=== PATIENT | female | born 1940 | race Caucasian/White ===

== ENCOUNTER 2025-08-03 22:31 | Inpatient (IN) | payer OTHER, SELFPAY ==
[2025-08-03] VITALS (11 sets, daily range): BP systolic 103–129; BP diastolic 59–96
[2025-08-03 12:16] LABS: Hematocrit 38.8 % (37.0-47.0); Hemoglobin 12.9 g/dL (12.0-16.0); Mean Corp Hgb Conc. 33.2 g/dL (33.0-37.0); Mean Corpuscular Volume 82.7 fL (81.0-99.0); Nucleated Red Blood Cells % 0 %; Platelet Count 242 10^3/uL (130-400); Red Cell Dist. Width 13.6 % (11.5-14.5)
[2025-08-03 12:47] LABS: ALT (SGPT) 12 U/L (0-35); AST (SGOT) 22 U/L (14-36); Albumin 3.5 g/dl (3.5-5.0); Alkaline Phosphatase 63 U/L (38-126); Blood Urea Nitrogen 31 mg/dl (7-17); Calcium 9.2 mg/dl (8.4-10.2); Carbon Dioxide 19 mmol/L (22-30); Chloride 102 mmol/L (98-107); Glucose 143 mg/dl (70-99); Lipase 52 U/L (23-300); Potassium 5.2 mmol/L (3.5-5.1); Sodium 129 mmol/L (135-145); Total Protein 5.5 g/dl (6.3-8.2); eGFR 44.36
--- NOTE | 2025-08-03 13:29 | ED.GENMED ---
History of Present Illness
General
Chief Complaint: Abdominal Symptoms
Source: patient
Exam Limitations: none
Time Seen by Provider: 08/03/25 13:15
History of Present Illness
History of Present Illness:
They feel 85-year-old female presents from independent living [facility] with onset of diarrhea last night. 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 I spoke with her son who is a physician and power of securities attorney. He notes that
she had at least 20-30 episodes of diarrhea over the night. With her dementia she occasionally gets hallucinations and tends to act on them. Sometimes she can wander. Patient is a poor historian herself but she does note some abdominal pain
patient does have a history of C. difficile colitis. No reported fever.
Phy Exam
Physical Exam
Physical Exam:
General: Well-developed female in no acute respiratory distress
HEENT: Normocephalic atraumatic
Heart: Regular rate and rhythm
Lungs: Clear no wheeze
Abdomen is tender to the touch diffusely no guarding
Extremities: No cyanosis or edema
Course
Orders/Labs/Results
Orders:
Orders
08/03/25 11:54
IV Insert/Care/Rem.- Treatment PRN
08/03/25 12:08
Complete Blood Count/With Diff Urgent
Comprehensive Metabolic Panel Urgent
Lipase Urgent
08/03/25 13:27
0.9% Sodium Chloride 1000 ml [Nss] 1,000 ml IV BOLUS
08/03/25 13:29
CT Abd/pelvis W Iv Cont Urgent
Comment:
Reason For Exam: abdominal pain, diarrhea
08/03/25 16:21
US Abdomen Complete/Upper Urgent
Comment:
Reason For Exam: abdominal pain
08/03/25 16:22
CDIFF [C difficile Antigen & Toxins] Urgent
TK Source: Feces/Stool
Specimen Description:
Date Specimen was Collected: 08/03/25
Time Specimen was Collected: 16:20
Stool Culture Urgent
TK Source: Feces/Stool
Specimen Description:
Date Specimen was Collected: 08/03/25
Time Specimen was Collected: 16:20
CR Chest - 2 Views Urgent
Comment:
Reason For Exam: weakness
08/03/25 16:28
Vancomycin HCl [Firvanq] 250 mg PO NOW STA
Abnormal Lab Results
08/03/25
12:08
WBC 22.9 H 10^3/uL
(4.8-10.8)
Abs Immat Gran (auto) 0.2 H 10^3/uL
(0-0.05)
Absolute Neuts (auto) 18.4 H 10^3/uL
(1.4-6.5)
Absolute Monos (auto) 2.6 H 10^3/uL
(0.1-0.6)
Immature Gran % 0.8 H %
(0-0.5)
Neutrophils % 80.3 H %
(42.2-75.2)
Lymphocytes % 7.5 L %
(20.5-51.1)
Monocytes % 11.1 H %
(1.7-9.3)
Sodium 129 L mmol/L
(135-145)
Potassium 5.2 H mmol/L
(3.5-5.1)
Carbon Dioxide 19 L mmol/L
(22-30)
BUN 31 H mg/dl
(7-17)
Creatinine 1.2 H mg/dL
(0.6-1.0)
Glucose 143 H mg/dl
(70-99)
Total Protein 5.5 L g/dl
(6.3-8.2)
08/03/25 12:08
08/03/25 12:08
Vital Signs
Initial and Last Documented VS:
Initial Vital Signs
Temp Pulse Resp BP Pulse Ox
97.5 F 84 22 103/59 94
08/03/25 11:57 08/03/25 11:57 08/03/25 11:57 08/03/25 11:57 08/03/25 11:57
Last Documented Vital Signs
Temp Pulse Resp BP Pulse Ox
97.5 F 83 26 115/72 94
08/03/25 11:57 08/03/25 14:45 08/03/25 14:45 08/03/25 14:00 08/03/25 13:32
MDM/Problems Addressed
Differential Diagnosis Includes:
Patient with diarrhea since last night. Consider electrolyte abnormality versus dehydration versus colitis. Stool studies ordered. Given the tenderness on exam CT of the abdomen pending
*Pulse Oximetry
SaO2: 94
Oxygen Mode of Delivery: Room air
Patient hypoxic: no
*Critical Care Note
Total Time (30-74mins, 75-104mins- exclusive of procedures): Not Applicable
Update Note
Update Note:
CT demonstrates colitis with distended gallbladder with sludge in the gallbladder. Patient was briefly hypoxic here. They are questioning possible aspiration. Chest x-ray pending. Did follow-up CT scan with ultrasound. Ultrasound confirms
distended gallbladder but no secondary signs of cholecystitis. With history of C. difficile, patient was empirically treated with vancomycin by mouth for colitis. Given elevated white count acute kidney injury and ongoing diarrhea, will admit to
hospital for colitis
ED Attending Note
-
Portions of this chart may have been created with voice recognition software.� Occasional wrong word or��sound alike� substitutions may have occurred due to the inherent limitations of voice recognition software.
Discharge Plan
Departure
Patient Disposition: Admit
Date of Disposition: 08/03/25
Time of Disposition: 19:28
Presentation/result/management discussed w/ accepting MD/DO: Hospitalist
Discharge Problem:
Colitis
Referrals:
Maryann Hernandez MD [Family Provider, Internal Medicine]
Interventions
Interventions:
*Risk Screen - Suicide Last Done: 08/03/25 11:57
*General Assessment Last Done: 08/03/25 11:57
*Neglect/Abuse Screening Last Done: 08/03/25 11:57
*ED- Fall Risk Assessment Last Done: 08/03/25 11:57
AJ-Dqtfbl-Dyfzrztqax Assessment Last Done: 08/03/25 11:57
Discharge Date and Time
Print Language: ARABIC
[2025-08-03] MEDS: NSS 1000 IV (14:02)
[2025-08-03] MEDS: FIRVANQ 250 MG PO (17:08)
--- NOTE | 2025-08-03 22:03 | HPS.HSE ---
Family Physician
-
Family Physician: Maryann Hernandez
Chief Complaint
-
Diarrhea
History of Present Illness
Patient is an 85y F with PMH significant for senile dementia and retinitis pigmentosa who presents to ED for evaluation of diarrhea. History obtained from ED staff and son via phone. Patient was doing fairly well until she began to have
profuse, watery diarrhea last PM. Son estimates about 20-30 episodes of loose stools overnight. Patient has prior h/o CDiff infection - but no recent abx use, etc.
Patient is legally blind due to retinitis pigmentosa / macular degeneration. She has had increasing issues with visual hallucinations / confusion recently and was started on risperidone about 5 days ago. No other new medications.
In the ED, patient appears to be resting comfortably.
Medical History
Past Medical History
Past Medical History: Reports Other
Additional Past Medical History:
Senile Dementia
Hypertension
GERD
Retinitis Pigmentosa
Macular Degeneration
CKD III
DDD
History of DVT
Past Surgical History: Reports Other
Additional Past Surgical History:
Appendectomy
Oophorectomy
Spinal Cord Stimulator
Bilateral TKA
Social History
Tobacco: Non-smoker
Alcohol: Occasional
Drug: None
Living: Halfway
Family History
Family History: Not pertinent
Allergies / Home Medications
Allergies reflects when Allergies were last updated in [facility].
Home Medications with original date entered in [facility]
Allergy/Medication List:
Allergies
Allergy/AdvReac Type Severity Reaction Status Date / Time
No Known Allergies Allergy Unverified 08/03/25 13:49
Home Medications
amlodipine 5 mg tablet (Norvasc) 5 mg PO DAILY 08/03/25
calcium carbonate (Tums) 400 mg PO QPM 08/03/25
calcium polycarbophil 625 mg tablet (FiberCon) 625 mg PO DAILY 08/03/25
cholecalciferol (vitamin D3) 50 mcg (2,000 unit) capsule (Vitamin D3) 50 mcg PO DAILY 08/03/25
denosumab 60 mg/mL subcutaneous syringe (Prolia) 60 mg SC [id number] 08/03/25
duloxetine 60 mg capsule,delayed release 60 mg PO BID 08/03/25
famotidine 40 mg tablet (Pepcid) 40 mg PO BID 08/03/25
loperamide 2 mg tablet 2 mg PO BID 08/03/25
metoprolol succinate 25 mg tablet,extended release 24 hr (Toprol XL) 12.5 mg PO QPM 08/03/25
risperidone 0.5 mg tablet 0.5 mg PO DAILY 08/03/25
simvastatin 20 mg tablet (Zocor) 20 mg PO QPM 08/03/25
tramadol 50 mg tablet 50 mg PO BIDPRN PRN moderate pain 08/03/25
valsartan 160 mg tablet 160 mg PO QPM 08/03/25
Review of Systems
-
Unable to obtain full review of systems at this time due to: Dementia
Physical Exam
Vital Signs
Vital Signs
Temp Pulse Resp BP Pulse Ox
97.5 F 92 23 114/69 94
08/03/25 11:57 08/03/25 19:13 08/03/25 19:13 08/03/25 22:00 08/03/25 21:25
Physical Exam
General: Other (85y F in no acute distress.)
HEENT: Other (Dry MM. Neck supple.)
Respiratory: Clear; No Wheezes, Rales or Rhonchi
Cardiac: S1/S2 and Regular Rhythm; No Murmur
GI: Soft, Non Distended, Normal Bowel Sounds and Other (Mild tenderness LLQ. No rebound / guarding.)
Musculoskeletal: No Clubbing, No Cyanosis and No Edema
Neuro: Awake
Laboratory Results
-
08/03/25 12:08
08/03/25 12:08
Laboratory Results
Total Bilirubin 0.8 mg/dl (0.2-1.3) 08/03/25 12:08
AST 22 U/L (14-36) 08/03/25 12:08
ALT 12 U/L (0-35) 08/03/25 12:08
Alkaline Phosphatase 63 U/L (38-126) 08/03/25 12:08
Lipase 52 U/L (23-300) 08/03/25 12:08
Impression/Plan
-
A/P: Patient is an 85y F with PMH significant for dementia and blindness who presents to ED for evaluation of diarrhea.
Colitis
Sepsis secondary to the above
- Admit for further evaluation and treatment.
- Patient presents with leukocytosis, tachypnea and symptoms/ imaging consistent with colitis.
- CDiff Ag positive but toxin negative. No evidence of active / current infection.
- Empiric abx for suspected infectious colitis.
- Continue PO vancomycin for prophylaxis given history of CDiff.
- Supportive care with IVFs.
- Follow-up stool cultures.
- Follow for clinical improvement.
ANNY on CKD III
Hyperkalemia
Hyponatremia
Non-Gapped Metabolic Acidosis
- Likely secondary to GI losses.
- IVF support as noted above.
- Monitor electrolytes and adjust IVFs as needed.
- Hold valsartan acutely.
- Follow for improvement.
Mild Hypoxemia
- Patient reportedly hypoxemic on arrival. Noted tachypnea.
- Concern per family for aspiration.
- Chest imaging clear today. No cough evident.
- Aspiration precautions.
- Monitor for any recurrent hypoxemia, etc.
Senile Dementia
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
- Increased visual hallucinations recently.
- Continue Risperdal. Follow for agitation / delirium during acute stay.
Benign Hypertension
- Holding valsartan and amlodipine acutely.
- Follow BP and resume when appropriate.
History of DVT
DVT Prophylaxis
- Subcut Heparin
Code Status: DNR
[2025-08-04] VITALS (7 sets, daily range): BP systolic 97–119; BP diastolic 57–75; BMI 24.4; BMI 25.2
[2025-08-04] MEDS: NSS 1000 IV ×3 (01:24→22:02)
[2025-08-04] MEDS: FIRVANQ 125 MG PO ×5 (01:24→23:58)
[2025-08-04] MEDS: ZOSYN 50 IV ×5 (01:25→23:58)
--- NOTE | 2025-08-04 06:14 | PTCARENOTE ---
08/04/2025: 0130: Pt arrived on unit approx 0100. Pt was AAOx1-2 upon arrival. Pt had difficulty answering admission questions due to orientation.
[2025-08-04] MEDS: CYMBALTA DELAYED RELEASE 60 MG PO ×2 (08:31→22:00)
[2025-08-04] MEDS: HEPARIN 5000 UNITS SC ×2 (08:31→22:00)
[2025-08-04] MEDS: RISPERDAL 0.5 MG PO (08:31)
[2025-08-04 08:55] LABS: Hematocrit 35.9 % (37.0-47.0); Hemoglobin 12.1 g/dL (12.0-16.0); Mean Corp Hgb Conc. 33.7 g/dL (33.0-37.0); Mean Corpuscular Volume 83.5 fL (81.0-99.0); Platelet Count 220 10^3/uL (130-400); Red Cell Dist. Width 13.8 % (11.5-14.5)
--- NOTE | 2025-08-04 09:22 | CON.GI ---
Addendum entered and electronically signed by You Rodas MD 08/04/25 18:28:
I saw and examined the patient.
The medical record librarian's note was reviewed and I agree with the note.
Poor historian. History of dementia/blindness. As per RN continues to have diarrhea
Diarrhea/ C.diff Ag + but toxin negative / prior hx of c.diff
CT abd/ pel with IV cont
IMPRESSION:
Limited evaluation of intestinal tract without oral contrast with at least some suggested mild wall thickening of the descending colon and sigmoid with some liquid stool, findings at least suspicious for colitis. No intestinal obstruction or free
air.
--WBC this a.m. trending down. No fever . Stool culture pending
-- Continue Vancomycin initiated by medical team
--Correction of electrolytes as per medical team
-- Advance diet as tolerated- lactose free low fat diet
-- ok to add probiotics on discharge
- will hold off on any GI invasive testing in the future considering her age/comorbidities.
Original Note:
Consultation
-
Date/Time Consultation Requested: 08/04/2025
Date/Time Consultation Performed: 08/04/2025
Requesting Provider: Travis Hammond
Performing Provider: You Rodas
Reason for Consultation: Colitis
Medical History
Chief Complaint / HPI
Chief Complaint: Diarrhea
History of Present Illness:
Catarina is an 85-year-old female with a past medical history of legal blindness, Lewy body dementia, hypertension, hyperlipidemia, GERD, osteoporosis presents from independent living at [facility] with less than 24 hours of diarrhea.
Son who is POA notes that she had at least 20-30 episodes of diarrhea over the night. Patient is a poor historian, but she did note some abdominal pain on admission. She has a history of C. difficile colitis for which she was treated in the past.
There were no reported fevers.
Lab work in the ED showed WBC 22 with left shift, stable hemoglobin at 12.9, hyponatremia 129, hyperkalemia 5.2, creatinine 1.2 (baseline unknown), elevated BUN 31. She was afebrile and hemodynamically stable. CT abdomen pelvis with IV contrast
demonstrated limited evaluation of intestinal tract, mild wall thickening of descending colon and sigmoid, suspicious for colitis. Also showed gallbladder stones and sludge with no findings of biliary tract dilatation. Abdominal ultrasound showed
limited evaluation due to body habitus/cooperation, confirmed gallbladder stones and sludge but no findings to suggest acute cholecystitis, negative sonographic Gonzalez's, obscured pancreas/abdominal aorta/IVC due to overlying bowel gas. Chest x-ray
showing no acute cardiopulmonary process.
C. difficile antigen positive toxin negative, stool studies still pending. Patient started on p.o. vancomycin and IV Zosyn as well as IV fluids.
GI was consulted for CT imaging findings of colitis and diarrhea.
When seen this morning she is awake/arousable, and capable of answering questions. Though she is not oriented to time, she is oriented to person and place. She had 3-4 small volume, nonbloody, light brown, liquid bowel movements overnight.
Past Medical History
Past Medical History: Other (See HPI)
Past Surgical History: Other
Social History
Tobacco: Non-Smoker
Alcohol: None
Drug: None
Living: [facility]
Family History
Family History: Reviewed & Not Pertinent
Allergies / Home Medications
Allergy/AdvReac Type Severity Reaction Status Date / Time
No Known Allergies Allergy Unverified 08/03/25 13:49
�Medication �Instructions �Recorded
amlodipine 5 mg tablet (Norvasc) 5 mg PO DAILY 08/03/25
calcium carbonate (Tums) 400 mg PO QPM 08/03/25
calcium polycarbophil 625 mg 625 mg PO DAILY 08/03/25
tablet (FiberCon)
cholecalciferol (vitamin D3) 50 50 mcg PO DAILY 08/03/25
mcg (2,000 unit) capsule (Vitamin
D3)
denosumab 60 mg/mL subcutaneous 60 mg SC [id number] 08/03/25
syringe (Prolia)
duloxetine 60 mg capsule,delayed 60 mg PO BID 08/03/25
release
famotidine 40 mg tablet (Pepcid) 40 mg PO BID 08/03/25
loperamide 2 mg tablet 2 mg PO BID 08/03/25
metoprolol succinate 25 mg 12.5 mg PO QPM 08/03/25
tablet,extended release 24 hr
(Toprol XL)
risperidone 0.5 mg tablet 0.5 mg PO DAILY 08/03/25
simvastatin 20 mg tablet (Zocor) 20 mg PO QPM 08/03/25
tramadol 50 mg tablet 50 mg PO BIDPRN PRN moderate pain 08/03/25
valsartan 160 mg tablet 160 mg PO QPM 08/03/25
Review of Systems
-
Unable to obtain full review of systems at this time due to: Dementia and Acuity
History Source: Patient and Family
All other systems: A 12 pt ROS was Negative except as stated above in HPI
Vital Signs
Temp Pulse Resp BP Pulse Ox
97.7 F 103 18 113/69 94
08/04/25 07:40 08/04/25 07:40 08/04/25 07:40 08/04/25 07:40 08/04/25 07:40
Physical Exam
Exam
General: Well Developed, Well Nourished, No Apparent Distress and Comfortable
HEENT: Normocephalic, Anicteric, Moist Mucous Membranes and Atraumatic
Respiratory: Clear and Non Labored Respirations; Negative Wheezes, Rales or Rhonchi
Cardiac: S1/S2 and Regular Rhythm; Negative Murmur or Rub
Breast: Deferred by me
GI: Soft, Non Distended, Normal Bowel Sounds and Tender (Left lower quadrant, epigastric, right lower quadrant)
Rectal: Deferred by Provider
Musculoskeletal: No Clubbing, No Cyanosis and No Edema
Skin: Warm and Dry
Neuro: Awake, Alert and Oriented (To person and place only)
Psych: Calm and Confused
Results
WBC 12.9 10^3/uL (4.8-10.8) H 08/04/25 08:04
Hgb 12.1 g/dL (12.0-16.0) 08/04/25 08:04
Hct 35.9 % (37.0-47.0) L 08/04/25 08:04
MCV 83.5 fL (81.0-99.0) 08/04/25 08:04
Plt Count 220 10^3/uL (130-400) 08/04/25 08:04
Absolute Neuts (auto) 18.4 10^3/uL (1.4-6.5) H 08/03/25 12:08
Sodium 129 mmol/L (135-145) L 08/03/25 12:08
Potassium 5.2 mmol/L (3.5-5.1) H 08/03/25 12:08
Chloride 102 mmol/L (98-107) 08/03/25 12:08
Carbon Dioxide 19 mmol/L (22-30) L 08/03/25 12:08
BUN 31 mg/dl (7-17) H 08/03/25 12:08
Creatinine 1.2 mg/dL (0.6-1.0) H 08/03/25 12:08
Calcium 9.2 mg/dl (8.4-10.2) 08/03/25 12:08
Total Bilirubin 0.8 mg/dl (0.2-1.3) 08/03/25 12:08
AST 22 U/L (14-36) 08/03/25 12:08
ALT 12 U/L (0-35) 08/03/25 12:08
Alkaline Phosphatase 63 U/L (38-126) 08/03/25 12:08
Lipase 52 U/L (23-300) 08/03/25 12:08
Diagnostic Image Results:
Prior GI Procedures:
EGD:
Colonoscopy:
Assessment / Plan
-
Catarina is an 85-year-old female with a past medical history of legal blindness, Lewy body dementia, hypertension, hyperlipidemia, GERD, osteoporosis presents from independent living at [facility] with less than 24 hours of 20-30 nonbloody liquid
bowel movements, and a history of C. difficile.
#Diarrhea
#C. difficile antigen positive, toxin negative
Etiology at this time leading more towards infectious. Patient from care home with a history of C. difficile and antigen positive on stool studies with active symptoms of diarrhea, but toxin negative.
- At this time she is receiving treatment for presumed C. difficile infection
- Continue to follow remaining stool studies
- Diarrhea improving at this time
- Continue to trend CMP, monitoring and repletion of electrolytes per primary team
- Continue IV fluid support for ANNY on CKD III
- Can consider adding probiotic posttreatment
- If all stool studies remain negative and diarrhea fails to improve, may then consider alternative causes and investigations. However, given age and significant comorbidities it is uncertain whether or not EGD/Colonoscopy would be appropriate or of
benefit.
- GI will follow
-
-
Thank you for consultation and allowing me to participate in the patient's care. Please call the assembly person GI physician during the after hours with any questions or concerns.
--- NOTE | 2025-08-04 10:24 | PTOTSP ---
Speech Therapy Assessment
Oral/pharyngeal swallow deemed within functional limits without overt signs of aspiration. However, history of dementia, and current illness/compromised immune system increase risk for dysphagia.
Recommend
1. Continue with current diet of regular solid and thin liquids as part of BRAT diet currently ordered.
2. Assist with set up and feeding given legally blind status and dementia.
3. Meds one at a time as tolerated with liquid.
4. ST will follow up briefly to ensure diet tolerance.
[2025-08-04 10:52] LABS: Blood Urea Nitrogen 30 mg/dl (7-17); Calcium 8.3 mg/dl (8.4-10.2); Carbon Dioxide 20 mmol/L (22-30); Chloride 106 mmol/L (98-107); Estimated Creatinine Clearance 27 ml/min; Glucose 103 mg/dl (70-99); Potassium 4.2 mmol/L (3.5-5.1); Sodium 132 mmol/L (135-145); eGFR 44.36
--- NOTE | 2025-08-04 13:58 | W.PN.HOSP.TC ---
Today's Communication/Plan
-
NPO
ADAT
Abx
Assessment / Plan
Assessment / Plan
Physical Exam
General: Other (85y F in no acute distress.)
HEENT: Other (Dry MM. Neck supple.)
Respiratory: Clear; No Wheezes, Rales or Rhonchi
Cardiac: S1/S2 and Regular Rhythm; No Murmur
GI: Soft, Non Distended, Normal Bowel Sounds and Other (Mild tenderness LLQ. No rebound / guarding.)
Musculoskeletal: No Clubbing, No Cyanosis and No Edema
Neuro: Awake
A/P: Patient is an 85y F with PMH significant for dementia and blindness who presents to ED for evaluation of diarrhea.
Colitis
Sepsis secondary to the above
- Admit for further evaluation and treatment.
- Patient presents with leukocytosis, tachypnea and symptoms/ imaging consistent with colitis.
- CDiff Ag positive but toxin negative. No evidence of active / current infection.
- Empiric abx for suspected infectious colitis.
- Continue PO vancomycin for prophylaxis given history of CDiff.
- Supportive care with IVFs.
- Follow-up stool cultures.
- Follow for clinical improvement.
ANNY on CKD III v CKDIII
Hyperkalemia
Hyponatremia
Non-Gapped Metabolic Acidosis
- Likely secondary to GI losses.
- IVF support as noted above.
- Monitor electrolytes and adjust IVFs as needed.
- Hold valsartan acutely.
- Follow for improvement.
Mild Hypoxemia
- Patient reportedly hypoxemic on arrival. Noted tachypnea.
- Concern per family for aspiration.
- Chest imaging clear today. No cough evident.
- Aspiration precautions.
- Monitor for any recurrent hypoxemia, etc.
Senile Dementia
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
- Increased visual hallucinations recently.
- Continue Risperdal. Follow for agitation / delirium during acute stay.
Benign Hypertension
- Holding valsartan and amlodipine acutely.
- Follow BP and resume when appropriate.
History of DVT
DVT Prophylaxis
- Subcut Heparin
Code Status: DNR
Anticipated Discharge: 24 - 48 hours
Subjective/Interval History
-
Date of Service: August 04, 2025
no acute events - diarrhea still present
Objective Data
-
Labs:
Laboratory Results
08/04/25
08:04
WBC 12.9 H
Hgb 12.1
Hct 35.9 L
Plt Count 220
Sodium 132 L
Potassium 4.2
Chloride 106
Carbon Dioxide 20 L
BUN 30 H
Creatinine 1.2 H
Glucose 103 H
Calcium 8.3 L
Vital Signs:
Vital Signs
Temp Pulse Resp BP Pulse Ox
97.5 F 95 14 113/69 98
08/04/25 11:20 08/04/25 11:20 08/04/25 11:20 08/04/25 07:40 08/04/25 11:20
Review of Systems
-
History Source: Patient
All other systems: Not reviewed unless documented
Data Reviewed
-
CT Scan: Report Reviewed by me
Labs: Labs Reviewed by me
--- NOTE | 2025-08-04 16:36 | CM ---
hedis manager reviewed patient's chart and met with patient and patient with dementia, case briefer reached out to patient's son Paras for prior set up, [facility], has 24 hour aide to assist, with adl's
and did not use any device with ambulation,. Patient's family were looking and memory care, but are interested in skilled placement if patient qualifies.
PCP: You Rogers
Pharmacy: [facility].
Plan; Referral sent to [facility] for possible skilled rehab.
[2025-08-04] MEDS: LIPITOR 10 MG PO (17:06)
[2025-08-04] MEDS: TOPROL XL 12.5 MG PO (17:06)
[2025-08-05 02:47] VITALS: BP 116/62
[2025-08-05 03:10] VITALS: BMI 25.1
[2025-08-05] MEDS: ZOSYN 50 IV ×3 (05:43→16:59)
[2025-08-05] MEDS: FIRVANQ 125 MG PO ×3 (05:43→16:59)
[2025-08-05] MEDS: NSS 1000 IV ×2 (05:44→17:00)
[2025-08-05 06:59] LABS: ALT (SGPT) 11 U/L (0-35); AST (SGOT) 19 U/L (14-36); Albumin 2.9 g/dl (3.5-5.0); Alkaline Phosphatase 72 U/L (38-126); Blood Urea Nitrogen 24 mg/dl (7-17); Calcium 8.1 mg/dl (8.4-10.2); Carbon Dioxide 18 mmol/L (22-30); Chloride 111 mmol/L (98-107); Estimated Creatinine Clearance 33 ml/min; Glucose 88 mg/dl (70-99); Potassium 3.5 mmol/L (3.5-5.1); Sodium 135 mmol/L (135-145); Total Protein 5.0 g/dl (6.3-8.2); eGFR 55.21
[2025-08-05 07:05] VITALS: BP 108/62
[2025-08-05 07:12] LABS: Hematocrit 32.4 % (37.0-47.0); Hemoglobin 11.0 g/dL (12.0-16.0); Mean Corp Hgb Conc. 34.0 g/dL (33.0-37.0); Mean Corpuscular Volume 82.7 fL (81.0-99.0); Platelet Count 220 10^3/uL (130-400); Red Cell Dist. Width 13.8 % (11.5-14.5)
[2025-08-05] MEDS: CYMBALTA DELAYED RELEASE 60 MG PO ×2 (09:03→20:41)
[2025-08-05] MEDS: HEPARIN 5000 UNITS SC ×2 (09:03→20:41)
[2025-08-05] MEDS: RISPERDAL 0.5 MG PO (09:03)
--- NOTE | 2025-08-05 09:31 | W.PN.GI.CBS2 ---
Addendum entered and electronically signed by You Rodas MD 08/05/25 20:57:
I saw and examined the patient.
The veterinary medical officer's note was reviewed and I agree with the note.
as per RN continues to have loose stool - 5 BMs
plan
ok to advance to low fat lactose free diet as tolerated
continue vanco for c.diff ag + but toxin negative
trial of cholestyramine
continue supportive care .
will hold off on any GI invasive testing in the future considering her age/comorbidities.
no further recommendations. will s/o
Original Note:
Today's Communication / Plan
-
see plan
Assessment / Plan
-
Catarina is an 85-year-old female with a past medical history of legal blindness, Lewy body dementia, hypertension, hyperlipidemia, GERD, osteoporosis presents from independent living at [facility] with less than 24 hours of 20-30 nonbloody liquid
bowel movements, and a history of C. difficile.
#Diarrhea
#C. difficile antigen positive, toxin negative
Etiology at this time leading more towards infectious. Patient from retirement with a history of C. difficile and antigen positive on stool studies with active symptoms of diarrhea, but toxin negative.
- WBC count still elevated at 12.6, however remains afebrile -- continue with IV Zosyn and p.o. Vanco
- Still having liquid diarrhea
- Stool studies still pending, adjust antibiotics following results
- Monitoring and repletion of electrolytes per primary team
- ADAT
- Continue IV fluid support
- Can consider adding probiotic posttreatment on discharge
- If all stool studies remain negative and diarrhea fails to improve, may then consider alternative causes and investigations. However, given age and significant comorbidities would not recommend EGD/Colonoscopy.
Subjective
Subjective
Date of Service: August 05, 2025
Had 5 liquid brown, nonbloody bms overnight and two this morning. She remains afebrile. She has some complaints of abdominal pain this morning as well as diarrhea. No subjective fevers or chills.
Objective
Data Reviewed
Laboratory Data:
Laboratory Results
08/05/25 06:03
08/05/25 06:03
Laboratory Results
Total Bilirubin 0.7 mg/dl (0.2-1.3) 08/05/25 06:03
AST 19 U/L (14-36) 08/05/25 06:03
ALT 11 U/L (0-35) 08/05/25 06:03
Alkaline Phosphatase 72 U/L (38-126) 08/05/25 06:03
Lipase 52 U/L (23-300) 08/03/25 12:08
Vital Signs and I&O:
Vital Signs
Temp Pulse Resp BP Pulse Ox
97.9 F 88 16 108/62 92
08/05/25 07:05 08/05/25 07:05 08/05/25 07:05 08/05/25 07:05 08/05/25 07:05
Physical Exam
Physical Exam
HEENT: Anicteric and Moist mucous membranes
Cardiology: Normal Sinus Rhythm, S1 and S2
GI: Soft, Non Distended, Tender (LLQ tenderness) and Normal Bowel Sounds
Extremities: No Edema and Warm
[2025-08-05 11:26] VITALS: BP 118/75
--- NOTE | 2025-08-05 13:51 | W.PN.HOSP.TC ---
Today's Communication/Plan
-
ADAT
Abx
IVF
Assessment / Plan
Assessment / Plan
Physical Exam
General: Other (85y F in no acute distress.)
HEENT: Other (Dry MM. Neck supple.)
Respiratory: Clear; No Wheezes, Rales or Rhonchi
Cardiac: S1/S2 and Regular Rhythm; No Murmur
GI: Soft, Non Distended, Normal Bowel Sounds and Other (Mild tenderness LLQ. No rebound / guarding.)
Musculoskeletal: No Clubbing, No Cyanosis and No Edema
Neuro: Awake
A/P: Patient is an 85y F with PMH significant for dementia and blindness who presents to ED for evaluation of diarrhea.
Colitis
Sepsis secondary to the above
- Admit for further evaluation and treatment.
- Patient presents with leukocytosis, tachypnea and symptoms/ imaging consistent with colitis.
- CDiff Ag positive but toxin negative. No evidence of active / current infection.
- Empiric abx for suspected infectious colitis.
- Continue PO vancomycin for prophylaxis given history of CDiff.
- Supportive care with IVFs.
- Follow-up stool cultures.
- Follow for clinical improvement.
- ADAT - CLD
ANNY on CKD III v CKDIII
Hyperkalemia
Hyponatremia
Non-Gapped Metabolic Acidosis
- Likely secondary to GI losses.
- IVF support as noted above.
- Monitor electrolytes and adjust IVFs as needed.
- Hold valsartan acutely.
- Follow for improvement.
Mild Hypoxemia
- Patient reportedly hypoxemic on arrival. Noted tachypnea.
- Concern per family for aspiration.
- Chest imaging clear today. No cough evident.
- Aspiration precautions.
- Monitor for any recurrent hypoxemia, etc.
- wean o2 as tolerated
Senile Dementia
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
- Increased visual hallucinations recently.
- Continue Risperdal. Follow for agitation / delirium during acute stay.
Benign Hypertension
- Holding valsartan and amlodipine acutely.
- Follow BP and resume when appropriate.
History of DVT
DVT Prophylaxis
- Subcut Heparin
Code Status: DNR
Anticipated Discharge: Within 24 hours
Subjective/Interval History
-
Date of Service: August 05, 2025
5 liquid BMs overnight, 2 this morning. Mild tenderness upon palpation of abdomen
Objective Data
-
Labs:
Laboratory Results
08/05/25
06:03
WBC 12.6 H
Hgb 11.0 L
Hct 32.4 L
Plt Count 220
Sodium 135
Potassium 3.5
Chloride 111 H
Carbon Dioxide 18 L
BUN 24 H
Creatinine 1.0
Glucose 88
Calcium 8.1 L
Total Bilirubin 0.7
AST 19
ALT 11
Alkaline Phosphatase 72
Vital Signs:
Vital Signs
Temp Pulse Resp BP Pulse Ox
97.9 F 89 16 118/75 93
08/05/25 11:26 08/05/25 11:26 08/05/25 11:26 08/05/25 11:26 08/05/25 11:26
Review of Systems
-
History Source: Patient
All other systems: Not reviewed unless documented
Data Reviewed
-
CT Scan: Report Reviewed by me
Labs: Labs Reviewed by me
[2025-08-05 15:05] VITALS: BP 119/73
--- NOTE | 2025-08-05 15:08 | CM ---
Chart reviewed and physical therapy are recommending skilled placement, referral sent to the [facility] for possible skilled placement, patient lives with her spouse at [facility] apartments.
Plan; Skilled placement at the [facility] will need Auth from insurance.
[2025-08-05] MEDS: LIPITOR 10 MG PO (16:59)
[2025-08-05] MEDS: TOPROL XL 12.5 MG PO (16:59)
[2025-08-05 19:55] VITALS: BP 121/79
[2025-08-05 23:08] VITALS: BP 111/59
[2025-08-06] MEDS: ZOSYN 50 IV ×4 (00:31→18:41)
[2025-08-06] MEDS: FIRVANQ 125 MG PO ×2 (00:31→05:32)
[2025-08-06 03:49] VITALS: BP 108/61
[2025-08-06] MEDS: NSS IV (04:51)
[2025-08-06] MEDS: NSS 1000 IV (05:35)
[2025-08-06 06:00] VITALS: BMI 25.1
[2025-08-06 07:05] VITALS: BP 135/75
[2025-08-06 07:58] LABS: Hematocrit 36.6 % (37.0-47.0); Hemoglobin 12.8 g/dL (12.0-16.0); Mean Corp Hgb Conc. 35.0 g/dL (33.0-37.0); Mean Corpuscular Volume 80.8 fL (81.0-99.0); Platelet Count 294 10^3/uL (130-400); Red Cell Dist. Width 13.5 % (11.5-14.5)
[2025-08-06] MEDS: HEPARIN 5000 UNITS SC ×2 (08:10→20:05)
[2025-08-06] MEDS: RISPERDAL PO ×2 (08:10→10:22)
[2025-08-06] MEDS: CYMBALTA DELAYED RELEASE PO ×3 (08:10→19:21)
[2025-08-06 08:16] LABS: ALT (SGPT) 17 U/L (0-35); AST (SGOT) 24 U/L (14-36); Albumin 3.2 g/dl (3.5-5.0); Alkaline Phosphatase 156 U/L (38-126); Blood Urea Nitrogen 11 mg/dl (7-17); Calcium 8.0 mg/dl (8.4-10.2); Carbon Dioxide 16 mmol/L (22-30); Chloride 110 mmol/L (98-107); Estimated Creatinine Clearance 41 ml/min; Glucose 112 mg/dl (70-99); Potassium 3.3 mmol/L (3.5-5.1); Sodium 136 mmol/L (135-145); Total Protein 5.5 g/dl (6.3-8.2); eGFR > 60.00
[2025-08-06] MEDS: KCL 270 MEQ IV (09:53)
[2025-08-06] MEDS: QUESTRAN PO (10:22)
--- NOTE | 2025-08-06 10:24 | PTCARENOTE ---
RN noticed audible wheeze this am shortly after pt was coughing with oral intake. notified. pt NPO, to receive chest xray and be evaluated by speech. pt currently 95 on 2L
--- NOTE | 2025-08-06 12:26 | W.PN.HOSP.TC ---
Today's Communication/Plan
-
ADAT if cleared by speech
cxr
stop fluids
nebs
Assessment / Plan
Assessment / Plan
Physical Exam
General: Other (85y F in no acute distress.)
HEENT: Other (Dry MM. Neck supple.)
Respiratory: Clear; No Wheezes, Rales or Rhonchi
Cardiac: S1/S2 and Regular Rhythm; No Murmur
GI: Soft, Non Distended, Normal Bowel Sounds and Other (Mild tenderness LLQ. No rebound / guarding.)
Musculoskeletal: No Clubbing, No Cyanosis and No Edema
Neuro: Awake
A/P: Patient is an 85y F with PMH significant for dementia and blindness who presents to ED for evaluation of diarrhea.
Colitis
Sepsis secondary to the above
- Admit for further evaluation and treatment.
- Patient presents with leukocytosis, tachypnea and symptoms/ imaging consistent with colitis.
- CDiff Ag positive but toxin negative. No evidence of active / current infection.
- Empiric abx for suspected infectious colitis.
- Continue PO vancomycin for prophylaxis given history of CDiff.
- Supportive care with IVFs.
- Follow-up stool cultures.
- Follow for clinical improvement.
- ADAT - CLD, can advance to full liquid diet if tolerating p.o.
ANNY on CKD III v CKDIII
Hyperkalemia/hypokalemia
Hyponatremia
Non-Gapped Metabolic Acidosis
- Likely secondary to GI losses.
- IVF support as noted above.
- Monitor electrolytes and adjust IVFs as needed.
- Hold valsartan acutely.
- Follow for improvement.
Mild Hypoxemia
- Patient reportedly hypoxemic on arrival. Noted tachypnea.
� Suspected aspiration
� Reengage speech eval again
� DuoNebs
� X-ray
� Weaned off o2
- stop fluids
Senile Dementia
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
- Increased visual hallucinations recently.
- Continue Risperdal. Follow for agitation / delirium during acute stay.
Benign Hypertension
- Holding valsartan and amlodipine acutely.
- Follow BP and resume when appropriate.
History of DVT
DVT Prophylaxis
- Subcut Heparin
Code Status: DNR
Total time spent on today's encounter was 50 minutes which included time spent in counseling the patient/family regarding diagnosis and treatment plan as listed above, goals of care, and symptom management. Case was discussed with nursing staff,
specialists, and care coordinators/case management. All labs and imaging personally reviewed by me. Remainder the time spent in detailed review of previous records, lab data, imaging, and other medical provider documentation.
Anticipated Discharge: > 48 hours
Subjective/Interval History
-
Date of Service: August 06, 2025
�Improved. Appears to possibly have aspirated this morning, with some wheezing noted. Fluids stopped
Objective Data
-
Labs:
Laboratory Results
08/06/25
07:18
WBC 13.6 H
Hgb 12.8
Hct 36.6 L
Plt Count 294 D
Sodium 136
Potassium 3.3 L
Chloride 110 H
Carbon Dioxide 16 L
BUN 11
Creatinine 0.8
Glucose 112 H
Calcium 8.0 L
Total Bilirubin 1.0
AST 24
ALT 17
Alkaline Phosphatase 156 H
Vital Signs:
Vital Signs
Temp Pulse Resp BP Pulse Ox
97.4 F 95 16 135/75 94
08/06/25 07:05 08/06/25 07:05 08/06/25 07:05 08/06/25 07:05 08/06/25 08:15
I&O
08/05/25 08/06/25 08/07/25
06:59 06:59 06:59
Intake Total 340 / 340
Balance 340 / 340
Review of Systems
-
History Source: Patient
All other systems: Not reviewed unless documented
Data Reviewed
-
CT Scan: Report Reviewed by me
Labs: Labs Reviewed by me
--- NOTE | 2025-08-06 12:51 | CM ---
Addendum entered by Khang Reagan 08/06/25 14:25:
CM receives a phone call from pt son's spouse Giselle [phone] and she stated she spoke to [facility] business analytics director, spoke to pt's son and agree to make a referral to following SNFs that are in network with [facility] advantage plan:
[facility], [facility], [facility], [facility]. A referral to above SNFs made.
D/C plan: preferred SNF.
CM will follow to assist pt with discharge to a preferred SNF.
Original Note:
CM following re: discharge planning.
Reviewed pt's chart, met with pt.
PT and OT evaluations noted - SNF level of care recommended.
A referral to [facility] noted. CM spoke to [facility] business analytics director and she stated she told they do not have a bed available. [facility] business analytics director stated she attempted to call pt's son Paras to offer other options of
SNFs that are in network with [facility] advantage plan and left a message to pt's son.
CM left a message to pt's son Paras.
D/C plan: preferred SNF that is in network with [facility] advantage plan.
CM will follow with discharge plan updates as hospitalization progresses.
--- NOTE | 2025-08-06 13:20 | PTOTSP ---
Speech Language Pathology
Pt seen for dysphagia tx. RN reported significant coughing episode with thin liquids earlier this date with wheezing following. Seen with P.O. trials of thin liquids and puree. Wheezing consistently noted with thin liquids. Given episode this
morning and current wheezing with P.O. intake, recommend instrumental swallowing assessment.
Recommend:
(1) VSE
(2) NPO until VSE completed
(3) Hold oral meds
(4) Will determine appropriateness of Aspiration Risk Hydration Protocol (ARHP) pending VSE
(5) BLASTING MACHINE OPERATOR to continue to follow
[2025-08-06] MEDS: FIRVANQ PO ×3 (14:03→23:07)
--- NOTE | 2025-08-06 15:00 | PTOTSP ---
Speech Language Pathology
VIDEOFLUOROSCOPIC SWALLOWING EXAMINATION (VSE) completed. Pt with mild oral and moderate pharyngeal dysphagia. Varying degrees of laryngeal penetration consistently noted with aspiration of puree with recovery to supraglottic space. Pharyngeal
residue also noted, severe in vallecula with regular solids. Pt will remain at chronic risk for aspiration.
Recommend:
(1) NPO vs accepting potential risks with IDDSI Level 4 (Puree) solids and Thin liquids
(2) Oral care 4x/day with suctioning as needed
(3) Meds 1 at a time with single sip of liquid
(4) ENERGY RATER to continue to follow
[2025-08-06] MEDS: DUONEB INH (15:14)
[2025-08-06 15:30] VITALS: BP 148/91
[2025-08-06] MEDS: LIPITOR PO (17:55)
[2025-08-06] MEDS: TOPROL XL PO (17:56)
--- NOTE | 2025-08-06 20:38 | PTCARENOTE ---
RN called patient`s son to confirm that his Giselle can be added as a secondary contact on the patient`s chart. Patient is not oriented. Per son Paras, it is okay to add his as a contact.
[2025-08-06] MEDS: DUONEB 3 ML INH (20:54)
[2025-08-06 23:00] VITALS: BP 144/77
[2025-08-07] MEDS: ZOSYN 50 IV ×5 (00:41→23:44)
[2025-08-07] MEDS: VENTOLIN NEBULES 2.5 MG INH (02:04)
--- NOTE | 2025-08-07 02:18 | PTCARENOTE ---
08/07/2025: 0220: Pt was evaluated following an episode of increased respiratory effort. Pt experienced an aspiration event the day prior. At time of assessment, the patient was on 2L O2 NC with O2: 94%,T: 99.4F, HR: 99bpm, RR: 20breaths/min. The pt
exhibited increased work of breathing with audible wheezing. HOB was elevated. This change in respiratory status was noted and communicated to the respiratory therapy team. RT evaluated the pt at bedside. PRN medication was administered per orders.
RT notified of aspiration event in day prior. Pt tolerated intervention well. Further respiratory changes to be notified to interdisciplinary team as necessary.
[2025-08-07] MEDS: FIRVANQ PO ×4 (04:47→23:41)
[2025-08-07 06:15] VITALS: BMI 26.2
[2025-08-07 07:00] VITALS: BP 151/84
[2025-08-07] MEDS: DUONEB 3 ML INH ×4 (07:39→19:53)
[2025-08-07] MEDS: HEPARIN 5000 UNITS SC ×2 (08:26→20:36)
[2025-08-07] MEDS: RISPERDAL 0.5 MG PO (08:35)
[2025-08-07] MEDS: CYMBALTA DELAYED RELEASE PO ×2 (08:35→20:14)
[2025-08-07 09:08] LABS: Hematocrit 34.0 % (37.0-47.0); Hemoglobin 11.9 g/dL (12.0-16.0); Mean Corp Hgb Conc. 35.0 g/dL (33.0-37.0); Mean Corpuscular Volume 79.8 fL (81.0-99.0); Platelet Count 326 10^3/uL (130-400); Red Cell Dist. Width 13.9 % (11.5-14.5)
[2025-08-07 09:35] LABS: ALT (SGPT) 19 U/L (0-35); AST (SGOT) 25 U/L (14-36); Albumin 3.4 g/dl (3.5-5.0); Alkaline Phosphatase 168 U/L (38-126); Blood Urea Nitrogen 6 mg/dl (7-17); Calcium 8.3 mg/dl (8.4-10.2); Carbon Dioxide 17 mmol/L (22-30); Chloride 111 mmol/L (98-107); Estimated Creatinine Clearance 46 ml/min; Glucose 108 mg/dl (70-99); Potassium 3.4 mmol/L (3.5-5.1); Sodium 138 mmol/L (135-145); Total Protein 5.6 g/dl (6.3-8.2); eGFR > 60.00
[2025-08-07] MEDS: QUESTRAN PO (10:00)
[2025-08-07 10:25] VITALS: BMI 26.2
[2025-08-07 10:59] VITALS: BP 132/104; O2SAT 93
[2025-08-07 11:00] VITALS: BP 164/102; PULSE 93; O2SAT 97
--- NOTE | 2025-08-07 13:53 | W.PN.HOSP.TC ---
Today's Communication/Plan
-
NPO
Head CT
Cont abx
wean o2
Assessment / Plan
Assessment / Plan
Physical Exam
General: Other (85y F in no acute distress.)
HEENT: Other (Dry MM. Neck supple.)
Respiratory: Clear; No Wheezes, Rales or Rhonchi
Cardiac: S1/S2 and Regular Rhythm; No Murmur
GI: Soft, Non Distended, Normal Bowel Sounds and Other (Mild tenderness LLQ. No rebound / guarding.)
Musculoskeletal: No Clubbing, No Cyanosis and No Edema
Neuro: Awake
A/P: Patient is an 85y F with PMH significant for dementia and blindness who presents to ED for evaluation of diarrhea.
Colitis
Sepsis secondary to the above
- Admit for further evaluation and treatment.
- Patient presents with leukocytosis, tachypnea and symptoms/ imaging consistent with colitis.
- CDiff Ag positive but toxin negative. No evidence of active / current infection.
- Empiric abx for suspected infectious colitis.
- Continue PO vancomycin for prophylaxis given history of CDiff.
- Supportive care with IVFs.
- Follow-up stool cultures - negative
- Follow for clinical improvement.
- ADAT -once cleared by speech
ANNY on CKD III v CKDIII
Hyperkalemia/hypokalemia
Hyponatremia
Non-Gapped Metabolic Acidosis
- Likely secondary to GI losses.
- IVF support as noted above.
- Monitor electrolytes and adjust IVFs as needed.
- Hold valsartan acutely.
- Follow for improvement.
Mild Hypoxemia
Aspiration pneumonia
-�Silently aspirating as per speech
� As per family, baseline is very active, talkative and no evidence of speech/ swallow disability in the past
� Continue n.p.o.
� DuoNebs
� Weaned off o2
- stop fluids
� Continue antibiotics
-Can attempt trial of NGT if no improvement and temporary; Patient did not want feeding tube
Senile Dementia
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
- Increased visual hallucinations recently.
- Continue Risperdal. Follow for agitation / delirium during acute stay.
�Obtain head CT to ensure speech/swallow issues are not due to CVA
Benign Hypertension
- Holding valsartan and amlodipine acutely.
- Follow BP and resume when appropriate.
History of DVT
DVT Prophylaxis
- Subcut Heparin
Code Status: DNR
Total time spent on today's encounter was 52 minutes which included time spent in counseling the patient/family regarding diagnosis and treatment plan as listed above, goals of care, and symptom management. Case was discussed with nursing staff,
specialists, and care coordinators/case management. All labs and imaging personally reviewed by me. Remainder the time spent in detailed review of previous records, lab data, imaging, and other medical provider documentation.
Anticipated Discharge: > 48 hours
Subjective/Interval History
-
Date of Service: August 07, 2025
Patient with notable aspiration, silently as per speech. Continue n.p.o.
Objective Data
-
Labs:
Laboratory Results
08/07/25
08:34
WBC 11.7 H
Hgb 11.9 L
Hct 34.0 L
Plt Count 326
Sodium 138
Potassium 3.4 L
Chloride 111 H
Carbon Dioxide 17 L
BUN 6 L
Creatinine 0.7
Glucose 108 H
Calcium 8.3 L
Total Bilirubin 0.8
AST 25
ALT 19
Alkaline Phosphatase 168 H
Vital Signs:
Vital Signs
Temp Pulse Resp BP Pulse Ox
98.1 F 94 16 151/84 95
08/07/25 07:00 08/07/25 11:10 08/07/25 11:10 08/07/25 07:00 08/07/25 11:10
I&O
08/06/25 08/07/25 08/08/25
06:59 06:59 06:59
Intake Total 340 / 340
Balance 340 / 340
Review of Systems
-
History Source: Patient
All other systems: Not reviewed unless documented
[2025-08-07] MEDS: KCL 270 MEQ IV (14:18)
--- NOTE | 2025-08-07 14:39 | CM ---
Chart reviewed and medical workup and treatment ongoing, plan is for possible skilled placement at discharge, referrals sent to [facility] and [facility]. Will follow up with skilled facilities.
Plan; Skilled placement depending on outcome of medical testing.
[2025-08-07 15:22] VITALS: BP 152/94
[2025-08-07] MEDS: LOPRESSOR 5 MG IV ×2 (18:27→23:46)
[2025-08-07 19:34] VITALS: BP 135/74
[2025-08-07 23:05] VITALS: BP 147/82
[2025-08-08 03:15] VITALS: BP 136/78
[2025-08-08] MEDS: ZOSYN 50 IV ×4 (05:52→23:45)
[2025-08-08] MEDS: LOPRESSOR 5 MG IV ×4 (05:52→23:45)
[2025-08-08] MEDS: FIRVANQ PO ×2 (05:52→12:26)
[2025-08-08] MEDS: DUONEB 3 ML INH ×4 (07:45→20:07)
[2025-08-08 08:00] VITALS: BP 160/88
[2025-08-08 08:40] LABS: Hematocrit 37.6 % (37.0-47.0); Hemoglobin 13.3 g/dL (12.0-16.0); Mean Corp Hgb Conc. 35.4 g/dL (33.0-37.0); Mean Corpuscular Volume 78.8 fL (81.0-99.0); Platelet Count 378 10^3/uL (130-400); Red Cell Dist. Width 13.9 % (11.5-14.5)
[2025-08-08] MEDS: RISPERDAL PO (08:59)
[2025-08-08] MEDS: CYMBALTA DELAYED RELEASE PO (08:59)
[2025-08-08 09:04] LABS: ALT (SGPT) 23 U/L (0-35); AST (SGOT) 32 U/L (14-36); Albumin 3.6 g/dl (3.5-5.0); Alkaline Phosphatase 193 U/L (38-126); Blood Urea Nitrogen 6 mg/dl (7-17); Calcium 8.5 mg/dl (8.4-10.2); Carbon Dioxide 18 mmol/L (22-30); Chloride 109 mmol/L (98-107); Estimated Creatinine Clearance 54 ml/min; Glucose 111 mg/dl (70-99); Potassium 3.6 mmol/L (3.5-5.1); Sodium 139 mmol/L (135-145); Total Protein 5.9 g/dl (6.3-8.2); eGFR > 60.00
[2025-08-08] MEDS: HEPARIN 5000 UNITS SC ×2 (09:27→19:47)
[2025-08-08 11:00] VITALS: BP 175/103
[2025-08-08] MEDS: QUESTRAN PO (11:41)
--- NOTE | 2025-08-08 12:57 | W.PN.HOSP.TC ---
Today's Communication/Plan
-
continued speech eval
still remains npo
OOB to Chair if safe
abx
Assessment / Plan
Assessment / Plan
Physical Exam
General: Other (85y F in no acute distress.)
HEENT: Other (Dry MM. Neck supple.)
Respiratory: Clear; No Wheezes, Rales or Rhonchi
Cardiac: S1/S2 and Regular Rhythm; No Murmur
GI: Soft, Non Distended, Normal Bowel Sounds and Other (Mild tenderness LLQ. No rebound / guarding.)
Musculoskeletal: No Clubbing, No Cyanosis and No Edema
Neuro: Awake
A/P: Patient is an 85y F with PMH significant for dementia and blindness who presents to ED for evaluation of diarrhea.
Colitis
Sepsis secondary to the above
- Admit for further evaluation and treatment.
- Patient presents with leukocytosis, tachypnea and symptoms/ imaging consistent with colitis.
- CDiff Ag positive but toxin negative. No evidence of active / current infection.
- Empiric abx for suspected infectious colitis.
- Continue PO vancomycin for prophylaxis given history of CDiff. as NPo cannot give but will assess ST
- Supportive care with IVFs.
- Follow-up stool cultures - negative
- Follow for clinical improvement.
- ADAT -once cleared by speech
ANNY on CKD III v CKDIII, resolved
Hyperkalemia/hypokalemia
Hyponatremia
Non-Gapped Metabolic Acidosis
- Likely secondary to GI losses.
- IVF support as noted above.
- Monitor electrolytes and adjust IVFs as needed.
- Hold valsartan acutely.
- Follow for improvement.
Mild Hypoxemia
Aspiration pneumonia
-�Silently aspirating as per speech
� As per family, baseline is very active, talkative and no evidence of speech/ swallow disability in the past
� Continue n.p.o.
� DuoNebs
� Weaned off o2
- stop fluids
� Continue antibiotics
-Can attempt trial of NGT if no improvement and temporary; Patient did not want feeding tube
-Continued speech eval
Senile Dementia
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
- Increased visual hallucinations recently.
- Continue Risperdal. Follow for agitation / delirium during acute stay.
�Obtain head CT to ensure speech/swallow issues are not due to CVA - unremarkable for acute pathology
Benign Hypertension
- Holding valsartan and amlodipine acutely.
- Follow BP and resume when appropriate.
#Transaminitis
-possible 2/2 to sepsis v abx
-ctm
History of DVT
DVT Prophylaxis
- Subcut Heparin
Code Status: DNR
Anticipated Discharge: > 48 hours
Subjective/Interval History
-
Date of Service: August 08, 2025
patient more verbal today
Objective Data
-
Labs:
Laboratory Results
08/08/25
07:59
WBC 10.7
Hgb 13.3
Hct 37.6
Plt Count 378
Sodium 139
Potassium 3.6
Chloride 109 H
Carbon Dioxide 18 L
BUN 6 L
Creatinine 0.6
Glucose 111 H
Calcium 8.5
Total Bilirubin 0.9
AST 32
ALT 23
Alkaline Phosphatase 193 H
Vital Signs:
Vital Signs
Temp Pulse Resp BP Pulse Ox
98 F 81 18 175/103 93
08/08/25 11:00 08/08/25 11:44 08/08/25 11:44 08/08/25 11:00 08/08/25 11:44
I&O
08/07/25 08/08/25 08/09/25
06:59 06:59 06:59
Intake Total 500 / 500
Balance 500 / 500
Review of Systems
-
History Source: Patient
All other systems: Not reviewed unless documented
Data Reviewed
-
CT Scan: Report Reviewed by me
Labs: Labs Reviewed by me
--- NOTE | 2025-08-08 14:57 | PTOTSP ---
Speech-Language Therapy Update
Pt seen with PO trials of puree, mildly thick liquids, and thin liquids. Pt with incr xerostemia. DIRECTOR PRODUCT DEVELOPMENT provided max assist for feed (placing cup in hand, moving pt's hand to mouth, etc.). With trials of thins, pt produced immediate cough response.
With puree and mildly thick liquids, pt able to manage consistency given small bites, slow rate, verbal cues for double swallow with no overt s/sx of aspiration. Vocal quality remained clear and no breath changes observed. Discussed with family re:
initiation of PO diet of puree and mildly thick liquids given some risks for aspiration. Pt in agreement to initiate PO diet.
Recommendation:
1. Initiate PO diet of IDDSI 4 puree and mildly thick liquids with 1:1 supervision and feeding assistance
2. Meds as best tolerated
3. Aspiration precautions, including small bites, slow rate, double swallow, and liquid wash
4. DIRECTOR PRODUCT DEVELOPMENT to follow
[2025-08-08 15:00] VITALS: BP 115/61
[2025-08-08] MEDS: FIRVANQ 125 MG PO ×2 (17:30→23:45)
[2025-08-08] MEDS: CYMBALTA DELAYED RELEASE 60 MG PO (19:47)
[2025-08-08 20:02] VITALS: BP 145/83
[2025-08-08 23:42] VITALS: BP 136/74
[2025-08-09 03:05] VITALS: BP 144/83
[2025-08-09 06:00] VITALS: BMI 24.6
[2025-08-09] MEDS: ZOSYN 50 IV ×4 (06:04→23:24)
[2025-08-09] MEDS: FIRVANQ 125 MG PO ×4 (06:04→23:24)
[2025-08-09] MEDS: LOPRESSOR 5 MG IV (06:04)
[2025-08-09 07:00] VITALS: BP 154/92
[2025-08-09] MEDS: DUONEB 3 ML INH ×4 (07:25→19:05)
[2025-08-09] MEDS: RISPERDAL 0.5 MG PO (08:26)
[2025-08-09] MEDS: CYMBALTA DELAYED RELEASE 60 MG PO ×2 (08:26→21:18)
[2025-08-09] MEDS: HEPARIN 5000 UNITS SC ×2 (08:26→21:17)
[2025-08-09 08:45] LABS: Hematocrit 36.4 % (37.0-47.0); Hemoglobin 12.8 g/dL (12.0-16.0); Mean Corp Hgb Conc. 35.2 g/dL (33.0-37.0); Mean Corpuscular Volume 79.0 fL (81.0-99.0); Platelet Count 409 10^3/uL (130-400); Red Cell Dist. Width 14.2 % (11.5-14.5)
[2025-08-09 09:08] LABS: ALT (SGPT) 22 U/L (0-35); AST (SGOT) 27 U/L (14-36); Albumin 3.6 g/dl (3.5-5.0); Alkaline Phosphatase 160 U/L (38-126); Blood Urea Nitrogen 8 mg/dl (7-17); Calcium 8.5 mg/dl (8.4-10.2); Carbon Dioxide 19 mmol/L (22-30); Chloride 109 mmol/L (98-107); Estimated Creatinine Clearance 54 ml/min; Glucose 114 mg/dl (70-99); Potassium 3.0 mmol/L (3.5-5.1); Sodium 141 mmol/L (135-145); Total Protein 5.9 g/dl (6.3-8.2); eGFR > 60.00
[2025-08-09 11:15] VITALS: BP 133/81
[2025-08-09] MEDS: QUESTRAN PO (12:28)
[2025-08-09] MEDS: KCL 40 MEQ PO ×2 (12:33→15:40)
--- NOTE | 2025-08-09 15:06 | W.PN.HOSP.TC ---
Today's Communication/Plan
-
cont abx
adat
disposition efforts hopefully if continued to tolerate PO and diarrhea improves
Assessment / Plan
Assessment / Plan
Physical Exam
General: Other (85y F in no acute distress.)
HEENT: Other (Dry MM. Neck supple.)
Respiratory: Clear; No Wheezes, Rales or Rhonchi
Cardiac: S1/S2 and Regular Rhythm; No Murmur
GI: Soft, Non Distended, Normal Bowel Sounds and Other (Mild tenderness LLQ. No rebound / guarding.)
Musculoskeletal: No Clubbing, No Cyanosis and No Edema
Neuro: Awake
A/P: Patient is an 85y F with PMH significant for dementia and blindness who presents to ED for evaluation of diarrhea.
Colitis
Sepsis secondary to the above
- Admit for further evaluation and treatment.
- Patient presents with leukocytosis, tachypnea and symptoms/ imaging consistent with colitis.
- CDiff Ag positive but toxin negative. No evidence of active / current infection.
- Empiric abx for suspected infectious colitis.
- Continue PO vancomycin for prophylaxis given history of CDiff.
- Supportive care with IVFs.
- Follow-up stool cultures - negative
- Follow for clinical improvement.
- ADAT
ANNY on CKD III v CKDIII, resolved
Hyperkalemia/hypokalemia
Hyponatremia, resolved
Non-Gapped Metabolic Acidosis
- Likely secondary to GI losses.
- IVF support as noted above.
- Monitor electrolytes and adjust IVFs as needed.
- Hold valsartan acutely.
- Follow for improvement.
� Monitor and replete
Mild Hypoxemia
Aspiration pneumonia
-�Silently aspirating - now passed speech eval; on IDDSI 4
� As per family, baseline is very active, talkative and no evidence of speech/ swallow disability in the past
� Weaned off o2
- stop fluids
� Continue antibiotics
-Continued speech eval
Senile Dementia
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
- Increased visual hallucinations recently.
- Continue Risperdal. Follow for agitation / delirium during acute stay.
�Obtain head CT to ensure speech/swallow issues are not due to CVA - unremarkable for acute pathology
Benign Hypertension
- Holding valsartan and amlodipine acutely.
- Follow BP and resume when appropriate.
History of DVT
DVT Prophylaxis
- Subcut Heparin
Code Status: DNR
Anticipated Discharge: 24 - 48 hours
Subjective/Interval History
-
Date of Service: August 09, 2025
Tolerating p.o. diet. Resuming p.o. vancomycin. Had 2 episode of diarrhea overnight, and 1 this morning
Objective Data
-
Labs:
Laboratory Results
08/09/25
08:23
WBC 12.3 H
Hgb 12.8
Hct 36.4 L
Plt Count 409 H
Sodium 141
Potassium 3.0 L
Chloride 109 H
Carbon Dioxide 19 L
BUN 8
Creatinine 0.6
Glucose 114 H
Calcium 8.5
Total Bilirubin 0.8
AST 27
ALT 22
Alkaline Phosphatase 160 H
Vital Signs:
Vital Signs
Temp Pulse Resp BP Pulse Ox
98.6 F 91 16 133/81 93
08/09/25 11:15 08/09/25 11:17 08/09/25 11:17 08/09/25 11:15 08/09/25 11:17
I&O
08/08/25 08/09/25 08/10/25
06:59 06:59 06:59
Intake Total 500 / 500 180 / 180
Balance 500 / 500 180 / 180
Review of Systems
-
History Source: Patient
All other systems: Not reviewed unless documented
Data Reviewed
-
CT Scan: Report Reviewed by me
Labs: Labs Reviewed by me
[2025-08-09 16:24] VITALS: BP 131/86
[2025-08-09] MEDS: TOPROL XL 12.5 MG PO (17:33)
[2025-08-09 19:45] VITALS: BP 132/84
[2025-08-09 23:08] VITALS: BP 147/90
[2025-08-10] VITALS (7 sets, daily range): BP systolic 124–165; BP diastolic 73–102; PULSE 93; O2SAT 97; BMI 24.0
[2025-08-10 03:10] LABS: Calprotectin, Fecal 2390 ug/g (<=49)
[2025-08-10] MEDS: FIRVANQ 125 MG PO ×4 (05:03→23:12)
[2025-08-10] MEDS: ZOSYN 50 IV ×4 (05:03→23:13)
[2025-08-10 06:43] LABS: Hematocrit 34.1 % (37.0-47.0); Hemoglobin 11.8 g/dL (12.0-16.0); Mean Corp Hgb Conc. 34.6 g/dL (33.0-37.0); Mean Corpuscular Volume 77.7 fL (81.0-99.0); Platelet Count 427 10^3/uL (130-400); Red Cell Dist. Width 14.5 % (11.5-14.5)
[2025-08-10] MEDS: DUONEB 3 ML INH ×2 (07:00→11:25)
[2025-08-10 07:06] LABS: ALT (SGPT) 19 U/L (0-35); AST (SGOT) 19 U/L (14-36); Albumin 3.5 g/dl (3.5-5.0); Alkaline Phosphatase 132 U/L (38-126); Blood Urea Nitrogen 11 mg/dl (7-17); Calcium 8.4 mg/dl (8.4-10.2); Carbon Dioxide 19 mmol/L (22-30); Chloride 114 mmol/L (98-107); Estimated Creatinine Clearance 46 ml/min; Glucose 145 mg/dl (70-99); Magnesium 2.0 mg/dl (1.6-2.3); Potassium 3.7 mmol/L (3.5-5.1); Sodium 144 mmol/L (135-145); Total Protein 5.9 g/dl (6.3-8.2); eGFR > 60.00
--- NOTE | 2025-08-10 07:53 | W.PN.HOSP.TC ---
Today's Communication/Plan
-
see a/p
Assessment / Plan
Assessment / Plan
Physical Exam
General: No acute distress, appears comfortable at this time
HEENT: normocephalic atraumatic moist oral mucosa
Respiratory: Clear; No Wheezes, Rales or Rhonchi
Cardiac: S1/S2 and Regular Rhythm; No Murmur
GI: Soft, Non Distended, Normal Bowel Sounds, nontender
Musculoskeletal: No Clubbing, No Cyanosis and No Edema
Neuro: AOx3 conversant coherent, mentation seems slow
Psych: calm
A/P: Patient is an 85y F with PMH significant for dementia and blindness who presents to ED for evaluation of diarrhea.
Colitis
Sepsis secondary to the above
- Patient presents with leukocytosis, tachypnea and symptoms/ imaging consistent with colitis.
- CDiff Ag positive but toxin negative. No evidence of active / current infection.
- Empiric abx zosyn for suspected infectious colitis. Planned for 7 days abx treatment
- Continue PO vancomycin for prophylaxis given history of CDiff.
- Supportive care with IVFs.
- stool cultures - negative
- ADAT
ANNY resolved
Hyperkalemia/hypokalemia
Hyponatremia, resolved
Mild Non-Gapped Metabolic Acidosis
- Likely secondary to GI losses.
- IVF support completed
- Monitor electrolytes and adjust IVFs as needed.
- Valsartan held, to be resumed at reduced dose
� Monitor and replete electrolytes as necessary
Mild Hypoxemia
Aspiration pneumonia
-�Silently aspirating - now passed speech eval; on IDDSI 4
� As per family, baseline is very active, talkative and no evidence of speech/ swallow disability in the past
� Weaned off o2
- stop fluids
� abx as above
Senile Dementia
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
- Increased visual hallucinations recently.
- Continue Risperdal. Follow for agitation / delirium during acute stay.
� CT head appreciated no acute abn's
Benign Hypertension
- valsartan and amlodipine held acutely.
- Valsartan to resume at reduced dose
- Home metoprolol 12.5 mg daily resumed and increased to 25 mg daily d/t tachycardia
Persistent Sinus Tachy
-Check ECHO
-Metoprolol increased to 25 mg daily as above
History of DVT
DVT Prophylaxis
- Subcut Heparin
PT/OT appreciated SNF rehab
Code Status: DNR
I spent a total of 45 minutes with the patient or on the floor. More than 50% of this time involved counseling and coordination of care.
Anticipated Discharge: 24 - 48 hours
Subjective/Interval History
-
Date of Service: August 10, 2025
no acute distress, sitting up comfortably in chair. Overall reports feeling well. Tolerating diet.
Objective Data
-
Labs:
Laboratory Results
08/10/25
06:11
WBC 11.9 H
Hgb 11.8 L
Hct 34.1 L
Plt Count 427 H
Sodium 144
Potassium 3.7
Chloride 114 H
Carbon Dioxide 19 L
BUN 11
Creatinine 0.7
Glucose 145 H
Calcium 8.4
Total Bilirubin 0.6
AST 19
ALT 19
Alkaline Phosphatase 132 H
Vital Signs:
Vital Signs
Temp Pulse Resp BP Pulse Ox
98.4 F 93 17 155/88 93
08/10/25 07:00 08/10/25 07:04 08/10/25 07:04 08/10/25 07:00 08/10/25 07:04
I&O
08/09/25 08/10/25 08/11/25
06:59 06:59 06:59
Intake Total 180 / 180 120 / 120
Balance 180 / 180 120 / 120
[2025-08-10] MEDS: HEPARIN 5000 UNITS SC ×2 (09:22→20:19)
[2025-08-10] MEDS: CYMBALTA DELAYED RELEASE 60 MG PO ×2 (09:22→20:19)
[2025-08-10] MEDS: RISPERDAL 0.5 MG PO (09:22)
[2025-08-10] MEDS: QUESTRAN 4 GRAM PO (09:23)
--- NOTE | 2025-08-10 10:52 | CM ---
Addendum entered by Catarina Haney 08/10/25 16:12:
[facility] is now willing to accept patient pending auth with [employer] insurance CM will call to liaison at [facility] to confirm next steps.
Addendum entered by Catarina Haney 08/10/25 13:38:
[place] and [facility] both responded to decline patient due to insurance. CM spoke with liaison at [facility] who is following up with facilities to confirm insurance.
Original Note:
Patient seen on , CM spoke with patient sister in lawGiselle as well as Laila at [facility] liaison from [facility]. Per recommendation from Laila, and agreement from patient sister in law referrals sent to [facility] and updated
referrals sent to [facility], [facility]. CM will continue to follow for discharge planning needs.
Plan; SNF when medically appropriate.
[2025-08-10] MEDS: TOPROL XL 25 MG PO (17:42)
[2025-08-11] VITALS (8 sets, daily range): BP systolic 134–166; BP diastolic 75–91; PULSE 100; O2SAT 95; BMI 24.2
[2025-08-11] MEDS: FIRVANQ 125 MG PO ×3 (05:12→16:28)
[2025-08-11] MEDS: ZOSYN 50 IV (05:13)
[2025-08-11 07:33] LABS: Hematocrit 33.8 % (37.0-47.0); Hemoglobin 11.9 g/dL (12.0-16.0); Mean Corp Hgb Conc. 35.2 g/dL (33.0-37.0); Mean Corpuscular Volume 78.1 fL (81.0-99.0); Platelet Count 403 10^3/uL (130-400); Red Cell Dist. Width 14.6 % (11.5-14.5)
[2025-08-11 08:01] LABS: ALT (SGPT) 16 U/L (0-35); AST (SGOT) 18 U/L (14-36); Albumin 3.3 g/dl (3.5-5.0); Alkaline Phosphatase 100 U/L (38-126); Blood Urea Nitrogen 9 mg/dl (7-17); Calcium 8.1 mg/dl (8.4-10.2); Carbon Dioxide 20 mmol/L (22-30); Chloride 114 mmol/L (98-107); Estimated Creatinine Clearance 54 ml/min; Glucose 127 mg/dl (70-99); Potassium 3.7 mmol/L (3.5-5.1); Sodium 143 mmol/L (135-145); Total Protein 5.7 g/dl (6.3-8.2); eGFR > 60.00
[2025-08-11] MEDS: HEPARIN 5000 UNITS SC ×2 (08:11→20:00)
[2025-08-11] MEDS: CYMBALTA DELAYED RELEASE 60 MG PO ×2 (08:12→20:00)
[2025-08-11] MEDS: RISPERDAL 0.5 MG PO (08:12)
[2025-08-11] MEDS: DIOVAN 40 MG PO (08:13)
[2025-08-11] MEDS: QUESTRAN 4 GRAM PO (09:19)
--- NOTE | 2025-08-11 10:05 | CM ---
Patient is for skilled placement per physician, patient is not stable for discharge today, patient has been accepted at [facility], case loader operator reached out to Meghan in admissions at [facility] and updated her
that patient will not be cleared today but tomorrow for transfer, per Meghan patient has been approved by the insurance.
[facility]
[phone]
--- NOTE | 2025-08-11 11:08 | W.PN.HOSP.TC ---
Today's Communication/Plan
-
cont gentle IVF hydration for now, contrast-induced nephropathy prophylaxis
Valsartan titrated up for better blood pressure control
cont dysphagia diet at this time, reduce risk aspiration
PT/OT
discharge planning
Assessment / Plan
Assessment / Plan
Physical Exam
General: No acute distress, appears comfortable at this time
HEENT: normocephalic atraumatic moist oral mucosa
Respiratory: Clear; No Wheezes, Rales or Rhonchi
Cardiac: S1/S2 and Regular Rhythm; No Murmur
GI: Soft, Non Distended, Normal Bowel Sounds, nontender
Musculoskeletal: No Clubbing, No Cyanosis and No Edema
Neuro: AOx3 conversant coherent, mentation seems slow
Psych: calm
A/P: Patient is an 85y F with PMH significant for dementia and blindness who presents to ED for evaluation of diarrhea.
Colitis
Sepsis secondary to the above
- Patient presents with leukocytosis, tachypnea and symptoms/ imaging consistent with colitis.
- CDiff Ag positive but toxin negative. No evidence of active / current infection.
- Empiric abx zosyn for suspected infectious colitis. completed 7 days
- PO vancomycin for prophylaxis given history of CDiff. Reduced to daily following completion systemic abx above, to cont for 5 more days
- stool cultures - negative
ANNY resolved
Hyperkalemia/hypokalemia
Hyponatremia, resolved
Mild Non-Gapped Metabolic Acidosis
- Likely secondary to GI losses.
- IVF support completed
- Monitor electrolytes and adjust IVFs as needed.
- Valsartan held, to be resumed at reduced dose
� Monitor and replete electrolytes as necessary
Mild Hypoxemia
Aspiration pneumonia
-�Silently aspirating - now passed speech eval; on IDDSI 4
� As per family, baseline is very active, talkative and no evidence of speech/ swallow disability in the past
� Weaned off o2
� abx completed as above
-follow up speech eval 08/11 appreciated cont pureed diet with mild thick liquids
Senile Dementia
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
- Increased visual hallucinations recently.
- Continue Risperdal. Follow for agitation / delirium during acute stay.
� CT head appreciated no acute abn's
Benign Hypertension
- valsartan and amlodipine held acutely.
- Valsartan resumed at reduced dose, titrated up to 80 mg daily
- Home metoprolol 12.5 mg daily resumed and increased to 25 mg daily d/t tachycardia
Persistent Sinus Tachy
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
-cont gentle IVF hydration ppx contrast induced nephropathy
-ECHO appreciated EF 57% mod aortic regurgitation, ascending aorta aneurysm 5.0 cm also noted
-Metoprolol increased to 25 mg daily as above
Regarding Aorta Aneurysm 5.0 cm
discussed with cardio
no need for acute intervention at this time, follow up CTA in 6-12 mo
checking RPR
History of DVT
DVT Prophylaxis
- Subcut Heparin
PT/OT appreciated SNF rehab
Code Status: DNR
discussed with patient, patient's son Paras, and [id number] Giselle
I spent a total of 45 minutes with the patient or on the floor. More than 50% of this time involved counseling and coordination of care.
Anticipated Discharge: Within 24 hours
Subjective/Interval History
-
Date of Service: August 11, 2025
No acute distress, overall appears well, stable respiratory status on room air. Mild sinus tachycardia persists.
Objective Data
-
Labs:
Laboratory Results
08/11/25
06:55
WBC 12.7 H
Hgb 11.9 L
Hct 33.8 L
Plt Count 403 H
Sodium 143
Potassium 3.7
Chloride 114 H
Carbon Dioxide 20 L
BUN 9
Creatinine 0.6
Glucose 127 H
Calcium 8.1 L
Total Bilirubin 0.5
AST 18
ALT 16
Alkaline Phosphatase 100
Vital Signs:
Vital Signs
Temp Pulse Resp BP Pulse Ox
97.3 F 98 18 161/90 98
08/11/25 07:30 08/11/25 08:13 08/11/25 07:30 08/11/25 08:13 08/11/25 07:30
I&O
08/10/25 08/11/25 08/12/25
06:59 06:59 06:59
Intake Total 120 / 120
Balance 120 / 120
[2025-08-11 13:03] LABS: Iron 22 ug/dl (37-170)
[2025-08-11 13:12] LABS: Total Iron Binding Capacity 195 ug/dl (265-497)
[2025-08-11 13:21] LABS: Vitamin D, 25-OH*** 36.0 ng/mL (30-80)
[2025-08-11] MEDS: LR 1000 IV (13:27)
[2025-08-11 13:39] LABS: Ferritin 179.0 ng/ml (11.1-264.0)
[2025-08-11 14:10] LABS: Folate > 20.0 ng/ml (2.76-20); Vitamin B12 942 pg/ml (239-931)
[2025-08-11] MEDS: FEOSOL 325 MG PO (16:28)
[2025-08-11] MEDS: TOPROL XL 25 MG PO (16:28)
[2025-08-11] MEDS: LOPRESSOR 2.5 MG IV ×2 (23:24→23:50)
[2025-08-11 23:43] LABS: Hematocrit 37.2 % (37.0-47.0); Hemoglobin 13.1 g/dL (12.0-16.0); Mean Corp Hgb Conc. 35.2 g/dL (33.0-37.0); Mean Corpuscular Volume 78.0 fL (81.0-99.0); Platelet Count 400 10^3/uL (130-400); Red Cell Dist. Width 15.0 % (11.5-14.5)
--- NOTE | 2025-08-11 23:43 | PTCARENOTE ---
Patient`s heart rate sustained in the 150`s with no complaints of symptoms. BP was 161/91, EKG showed Afib. Nurse practitioner made aware, 2.5 mg of Lopressor ordered. See MAR for administration. Heart is still in the 150`s, another 2.5 mg IV
lopressor ordered. See MAR. Labs also collected on patient.
[2025-08-11 23:51] LABS: Blood Urea Nitrogen 9 mg/dl (7-17); Calcium 8.9 mg/dl (8.4-10.2); Carbon Dioxide 22 mmol/L (22-30); Chloride 112 mmol/L (98-107); Estimated Creatinine Clearance 46 ml/min; Glucose 126 mg/dl (70-99); Magnesium 1.8 mg/dl (1.6-2.3); Potassium 3.3 mmol/L (3.5-5.1); Sodium 142 mmol/L (135-145); eGFR > 60.00
[2025-08-12 00:03] LABS: Troponin I 0.023 ng/ml
[2025-08-12] MEDS: KCL 270 MEQ IV (00:11)
[2025-08-12] MEDS: CARDIZEM 5 MG IV (00:11)
[2025-08-12] MEDS: CARDIZEM 125 IV (01:22)
[2025-08-12 03:00] VITALS: BP 137/77
--- NOTE | 2025-08-12 03:17 | DOWNTIME ---
There was a [email or web address] Client Component Inspector Downtime on 08/12/2025 from 0100 to 08/12/2025 at 0215. Downtime documentation of patient's care, including medication administrations, has been reconciled in the electronic record per guidelines. Refer to the
patient's paper chart under the miscellaneous tab to see printed paper medication records and downtime forms.
[2025-08-12 03:31] VITALS: BMI 23.9
--- NOTE | 2025-08-12 04:55 | PTCARENOTE ---
Patient received Lopressor 2.5mg IV x2 and 5 mg IV Cardizem for a heart rate sustaining in the 150`s. Patient was asymptomatic. Nurse practitioner was made aware. Order placed for IV Cardizem gtt. See Mar documentation for administration.
--- NOTE | 2025-08-12 07:28 | W.PN.HOSP.TC ---
Addendum entered and electronically signed by Gerardo Wan MD 08/13/25 12:14:
Blood pressure improved will resume home Amlodipine on discharge.
Original Note:
Today's Communication/Plan
-
Increased metoprolol as per Cardio
possible SNF rehab tomorrow if remains stable
Assessment / Plan
Assessment / Plan
Physical Exam
General: No acute distress, appears comfortable at this time
HEENT: normocephalic atraumatic moist oral mucosa
Respiratory: Clear; No Wheezes, Rales or Rhonchi
Cardiac: S1/S2 and Regular Rhythm; No Murmur
GI: Soft, Non Distended, Normal Bowel Sounds, nontender
Musculoskeletal: No Clubbing, No Cyanosis and No Edema
Neuro: AOx3 conversant coherent
Psych: calm
A/P: Patient is an 85y F with PMH significant for dementia and blindness who presents to ED for evaluation of diarrhea.
Colitis, possibly Cdiff
Sepsis secondary to the above
- Patient presents with leukocytosis, tachypnea and symptoms/ imaging consistent with colitis.
- CDiff Ag positive but toxin negative
- Empiric abx zosyn for suspected infectious colitis. completed 7 days
- PO vancomycin for possible CDiff. cont QID for total 14 days. (08/17/25 last day)
New onset Afib RVR over night
-briefly treated with Cardizem gtt since spontaneously converted back to NSR
-patient asymptomatic, per reports did not feel afib
-Cardio eval appreciated home Metoprolol dose increased
-discussed with family declined therapeutic anticoagulation d/t progressing dementia and risk of falls which is reasonable.
Possible subclinical hypothyroidism
-TSH elevated 8.76 but T4 wnl 1.44
-considering starting Low dose Synthroid supplementation
-repeat TFT in one month
ANNY resolved
Hyperkalemia/hypokalemia
Hyponatremia, resolved
Mild Non-Gapped Metabolic Acidosis
- Likely secondary to GI losses.
- IVF support completed
- Monitor electrolytes and adjust IVFs as needed.
- Valsartan held, resumed at reduced dose since titrated back to home dose
� Monitor and replete electrolytes as necessary
Mild Hypoxemia
Aspiration pneumonia
-�Silently aspirating since passed speech eval; on IDDSI 4
� As per family, baseline is very active, talkative and no evidence of speech/ swallow disability in the past
� Weaned off o2
� abx completed as above
- follow up speech eval 08/11 appreciated cont pureed diet with mild thick liquids
Senile Dementia
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
- Increased visual hallucinations recently.
- Continue Risperdal. Follow for agitation / delirium during acute stay.
� CT head appreciated no acute abn's
Benign Hypertension
- valsartan and amlodipine held acutely.
- Valsartan resumed at reduced dose, titrated Back up to home dose 160 mg daily
- Home metoprolol 12.5 mg daily resumed and increased to 25 mg daily d/t tachycardia later increased to BID d/t afib as per cardio
Persistent Sinus Tachy/pAfib
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
-cont gentle IVF hydration ppx contrast induced nephropathy
-ECHO appreciated EF 57% mod aortic regurgitation, ascending aorta aneurysm 5.0 cm also noted
-Metoprolol increased to 25 mg BID as above
Regarding Aorta Aneurysm 5.0 cm
discussed with cardio
no need for acute intervention at this time, follow up CTA in 6-12 mo
RPR remains pending
History of DVT
DVT Prophylaxis
- Subcut Heparin
PT/OT appreciated SNF rehab
Code Status: DNR
discussed with patient, patient's son Paras, and [id number] Giselle
I spent a total of 45 minutes with the patient or on the floor. More than 50% of this time involved counseling and coordination of care.
Anticipated Discharge: Within 24 hours
Subjective/Interval History
-
Date of Service: August 12, 2025
No acute distress, sitting up comfortably in chair, overnight events notable for new onset afib rvr. Patient reportedly was asymptomatic when it occurred, denied palpitations chest pain. Treated with cardizem gtt, afib since spontaneously
converted back to NSR.
Objective Data
-
Labs:
Laboratory Results
08/11/25 08/12/25
23:26 06:00
WBC 13.7 H Pending
Hgb 13.1 Pending
Hct 37.2 Pending
Plt Count 400 Pending
Sodium 142 Pending
Potassium 3.3 L Pending
Chloride 112 H Pending
Carbon Dioxide 22 Pending
BUN 9 Pending
Creatinine 0.7 Pending
Glucose 126 H Pending
Calcium 8.9 Pending
Vital Signs:
Vital Signs
Temp Pulse Resp BP Pulse Ox
97.6 F 87 18 137/77 92
08/12/25 03:00 08/12/25 03:00 08/12/25 03:00 08/12/25 03:00 08/12/25 03:00
I&O
08/11/25 08/12/25 08/13/25
06:59 06:59 06:59
Intake Total 240 / 240
Balance 240 / 240
[2025-08-12 07:47] VITALS: BP 141/84
[2025-08-12] MEDS: CYMBALTA DELAYED RELEASE 60 MG PO ×2 (08:09→19:30)
[2025-08-12] MEDS: FIRVANQ 125 MG PO ×4 (08:09→23:06)
[2025-08-12] MEDS: HEPARIN 5000 UNITS SC ×2 (08:09→19:28)
[2025-08-12] MEDS: DIOVAN 80 MG PO (08:09)
[2025-08-12] MEDS: FEOSOL 325 MG PO (08:09)
[2025-08-12] MEDS: RISPERDAL 0.5 MG PO (08:09)
[2025-08-12] MEDS: QUESTRAN 4 GRAM PO (08:10)
[2025-08-12 08:24] LABS: Hematocrit 37.8 % (37.0-47.0); Hemoglobin 13.0 g/dL (12.0-16.0); Mean Corp Hgb Conc. 34.4 g/dL (33.0-37.0); Mean Corpuscular Volume 79.4 fL (81.0-99.0); Platelet Count 448 10^3/uL (130-400); Red Cell Dist. Width 15.0 % (11.5-14.5)
[2025-08-12 08:52] LABS: Troponin I 0.028 ng/ml
[2025-08-12 09:14] LABS: Blood Urea Nitrogen 6 mg/dl (7-17); Calcium 8.5 mg/dl (8.4-10.2); Carbon Dioxide 23 mmol/L (22-30); Chloride 113 mmol/L (98-107); Estimated Creatinine Clearance 54 ml/min; Glucose 120 mg/dl (70-99); Magnesium 1.7 mg/dl (1.6-2.3); Potassium 3.9 mmol/L (3.5-5.1); Sodium 143 mmol/L (135-145); eGFR > 60.00
[2025-08-12 09:31] LABS: TSH 8.76 uIU/ml (0.47-4.68)
--- NOTE | 2025-08-12 09:54 | CON.CAR ---
Addendum entered and electronically signed by Rodrigo Hubbard MD 08/12/25 10:47:
I saw and examined the patient.
The CANAL EQUIPMENT MECHANIC or PA's note was reviewed and I agree with the note.
Comment: General: Awake but confused
Neck: Supple, no JVD, HJR, carotids +2 B/L, no bruits bilaterally.
Heart: Non displaced PMI, RRR, no murmurs, No S3, S4, no rubs.
Lungs: scattered rhonchi
Extremities: No clubbing, cyanosis or edema bilaterally.
Neuro: Awake but confused
Catarina has history of hypertension, hyperlipidemia, reflux, C. difficile, dementia, legally blind. She presented with diarrhea on August 03. She has CT consistent with colitis. Cardiology is consulted for atrial fibrillation which occurred on
telemetry but is spontaneously converted to sinus rhythm
Discussed with patient's family. They declined anticoagulation due to balance issues and escalating dementia. Continue on higher dose of outpatient Toprol and will discontinue IV Cardizem. Discussed with primary service and family.
Will sign off, call with recurrent A-fib.
Original Note:
Consultation
Consultation Request
Date/Time Consultation Performed: 08/12/25
Requesting Provider: Dr. Wan
Performing Provider: Kim Glez PA-C for Dr. Hubbard
Reason for Consultation: afib
Medical History
-
Chief Complaint: diarrhea
History of Present Illness:
Patient is an 85-year-old female with past medical history of hypertension, hyperlipidemia, GERD, C. difficile, osteoporosis, legally blind, Lewy body dementia who presented to [facility] on 08/03/25 due to acute onset of diarrhea. She underwent CT of the
abdomen and pelvis which demonstrated findings concerning for colitis. She was C. difficile antigen positive, toxin negative. Was noted to have episode of A-fib last evening and was started on IV Cardizem, now back in sinus rhythm. Cardiology
consulted for evaluation. Patient denies history of cardiac issues including atrial fibrillation to her knowledge. She denies symptoms of chest pain, shortness of breath, palpitations. She denies history of falls, bleeding issues in the past.
PMH:
Hypertension
Hyperlipidemia
GERD
History of C. difficile
Osteoporosis
Legally blind
Lewy body dementia
Past Medical History
Past Medical History: Other (in HPI)
Social History
Tobacco: Non-Smoker
Living: Assisted Living
Family History
Family History: Reviewed & Not Pertinent
Allergies / Home Medications
Allergy/AdvReac Type Severity Reaction Status Date / Time
No Known Allergies Allergy Unverified 08/03/25 13:49
�Medication �Instructions �Recorded �Confirmed �Type
amlodipine 5 mg tablet (Norvasc) 5 mg PO DAILY 08/03/25 08/03/25 History
calcium carbonate (Tums) 400 mg PO QPM 08/03/25 08/03/25 History
calcium polycarbophil 625 mg 625 mg PO DAILY 08/03/25 08/03/25 History
tablet (FiberCon)
cholecalciferol (vitamin D3) 50 50 mcg PO DAILY 08/03/25 08/03/25 History
mcg (2,000 unit) capsule (Vitamin
D3)
denosumab 60 mg/mL subcutaneous 60 mg SC [id number] 08/03/25 08/03/25 History
syringe (Prolia)
duloxetine 60 mg capsule,delayed 60 mg PO BID 08/03/25 08/03/25 History
release
famotidine 40 mg tablet (Pepcid) 40 mg PO BID 08/03/25 08/03/25 History
loperamide 2 mg tablet 2 mg PO BID 08/03/25 08/03/25 History
metoprolol succinate 25 mg 12.5 mg PO QPM 08/03/25 08/03/25 History
tablet,extended release 24 hr
(Toprol XL)
risperidone 0.5 mg tablet 0.5 mg PO DAILY 08/03/25 08/03/25 History
simvastatin 20 mg tablet (Zocor) 20 mg PO QPM 08/03/25 08/03/25 History
tramadol 50 mg tablet 50 mg PO BIDPRN PRN moderate pain 08/03/25 08/03/25 History
valsartan 160 mg tablet 160 mg PO QPM 08/03/25 08/03/25 History
Review of Systems
-
History Source: Patient
All other systems: Negative unless noted
Physical Exam
Vital Signs
Temp Pulse Resp BP Pulse Ox
98.0 F 96 16 141/84 91
08/12/25 07:47 08/12/25 07:47 08/12/25 07:47 08/12/25 07:47 08/12/25 07:47
Lab Results
08/12/25 08:13
08/12/25 08:13
Troponin I 0.028 ng/ml 08/12/25 08:13
Physical Exam
General: No Apparent Distress and Comfortable
HEENT: Normocephalic, Anicteric and Moist Mucous Membranes
Respiratory: Crackles and Non Labored Respirations
Cardiac: S1/S2 and Regular Rhythm
GI: Soft, Non Distended and Normal Bowel Sounds
Musculoskeletal: No Clubbing, No Cyanosis and No Edema
Skin: Warm and Dry
Neuro: Awake, Alert and Oriented (to self, place)
Impression / Plan
-
Primary Business Services Assistant: none prior to admission
Assessment:
Presentation with diarrhea
Colitis
Atrial fibrillation with RVR, new diagnosis, s/p spontaneous conversion to SR
Small R pleural effusion
Hypertension
Hyperlipidemia
GERD
History of C. difficile
Osteoporosis
Legally blind
Lewy body dementia
Ascending aorta dilation by echo
DNR
ECHO 08/11/25: EF 57%, MAC, mild MR, aortic sclerosis with at least moderate AR, normal right heart, PASP 24 mmHg, dilated ascending aorta measuring 5.0 cm
Plan:
- Patient being treated for acute colitis. Continue antibiotics per primary service
- patient was noted to go into atrial fibrillation with RVR, new diagnosis, last evening. EKG 08/11 reviewed by me. Was started on IV Cardizem gtt and spontaneously converted to sinus rhythm overnight. Remains in sinus rhythm at this time
- Will stop IV Cardizem and continue outpatient Toprol at increased dose of 25 mg BID
- Discussed anticoagulation with patient. She denies history of significant bleeding issues or falls as an outpatient, however upon discussing with patient's son, who is a physician, via telephone he expresses concern about OAC given increasing
balance issues and is not interested in DOAC as he feels risks outweigh benefits at this time. he states overall mgmt should be conservative given escalating dementia.
- Chest CT with evidence of small right pleural effusion. Check proBNP. son is concerned she is volume deplete. will follow volume status
- Echo with results as above, reviewed with the patient 08/12
- TSH 8. Free T4 pending
- son asking about her going to rehab today. pending results of above, could go from cardiac standpoint if maintaining SR.
- will arrange OP cardiac follow up
Data Reviewed
-
EKG: Tracing Personally Visualized and interpreted
CT Scan: Report Reviewed by me
Medical Tests (Nuc Med, Echo etc): Report Reviewed by me
Labs: Labs Reviewed by me
Old Records: Reviewed
[2025-08-12] MEDS: TOPROL XL 25 MG PO ×2 (11:00→19:34)
[2025-08-12 11:17] VITALS: BP 143/85
[2025-08-12] MEDS: NEUTRA-PHOS POWDER PACKET 250 MG PO ×3 (13:03→21:20)
[2025-08-12 15:42] VITALS: BP 130/83
[2025-08-12 19:41] VITALS: BP 135/78
[2025-08-12 23:44] VITALS: BP 143/76
[2025-08-13 03:11] VITALS: BP 166/96
[2025-08-13 03:56] VITALS: BMI 23.7
[2025-08-13] MEDS: FIRVANQ 125 MG PO ×2 (05:00→11:22)
--- NOTE | 2025-08-13 07:14 | W.PN.HOSP.TC ---
Today's Communication/Plan
-
discharge
Assessment / Plan
Assessment / Plan
Physical Exam
General: No acute distress, appears comfortable at this time
HEENT: normocephalic atraumatic moist oral mucosa
Respiratory: Clear; No Wheezes, Rales or Rhonchi
Cardiac: S1/S2 and Regular Rhythm; No Murmur
GI: Soft, Non Distended, Normal Bowel Sounds, nontender
Musculoskeletal: No Clubbing, No Cyanosis and No Edema
Neuro: AOx3 conversant coherent
Psych: calm
A/P: Patient is an 85y F with PMH significant for dementia and blindness who presents to ED for evaluation of diarrhea.
Colitis, possibly Cdiff
Sepsis secondary to the above
- Patient presents with leukocytosis, tachypnea and symptoms/ imaging consistent with colitis.
- CDiff Ag positive but toxin negative
- Empiric abx zosyn for suspected infectious colitis. completed 7 days
- PO vancomycin for possible CDiff. cont QID for total 14 days. (08/17/25 last day)
New onset Afib RVR over night
-briefly treated with Cardizem gtt since spontaneously converted back to NSR
-patient asymptomatic, per reports did not feel afib
-Cardio eval appreciated home Metoprolol dose increased
-discussed with family declined therapeutic anticoagulation d/t progressing dementia and risk of falls which is reasonable.
Possible subclinical hypothyroidism
Abnormal thyroid function test
-TSH elevated 8.76 but T4 wnl 1.44
-repeat TFT in one month
ANNY resolved
Hyperkalemia/hypokalemia
Hyponatremia, resolved
Mild Non-Gapped Metabolic Acidosis
- Likely secondary to GI losses.
- IVF support completed
- Monitor electrolytes and adjust IVFs as needed.
- Valsartan held, resumed at reduced dose since titrated back to home dose
� Monitor and replete electrolytes as necessary
Mild Hypoxemia
Aspiration pneumonia
-�Silently aspirating since passed speech eval; on IDDSI 4
� As per family, baseline is very active, talkative and no evidence of speech/ swallow disability in the past
� Weaned off o2
� abx completed as above
- follow up speech eval 08/11 appreciated cont pureed diet with mild thick liquids
Senile Dementia
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
- Increased visual hallucinations recently.
- Continue Risperdal. Follow for agitation / delirium during acute stay.
� CT head appreciated no acute abn's
Benign Hypertension
- valsartan and amlodipine held acutely.
- Valsartan resumed at reduced dose, titrated Back up to home dose 160 mg daily
- Home metoprolol 12.5 mg daily resumed and increased to 25 mg daily d/t tachycardia later increased to BID d/t afib as per cardio
Persistent Sinus Tachy/pAfib
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
-cont gentle IVF hydration ppx contrast induced nephropathy
-ECHO appreciated EF 57% mod aortic regurgitation, ascending aorta aneurysm 5.0 cm also noted
-Metoprolol increased to 25 mg BID as above
Regarding Aorta Aneurysm 5.0 cm
discussed with cardio
no need for acute intervention at this time, follow up CTA in 6-12 mo
RPR remains pending
History of DVT
DVT Prophylaxis
- Subcut Heparin
PT/OT appreciated SNF rehab
Code Status: DNR
discussed with patient and patient's [id number] Giselle
Total Time Preparing Discharge __40 minutes including examination of the patient, summary of the hospital stay, instructions for continuing care to all relevant caregivers; and preparation of discharge records, prescriptions, and referral
forms if necessary.
Anticipated Discharge: Today
Subjective/Interval History
-
Date of Service: August 13, 2025
Seen and examined at bedside in no acute distress, overall reports feeling well.
Objective Data
-
Labs:
Laboratory Results
08/13/25
06:00
WBC Pending
Hgb Pending
Hct Pending
Plt Count Pending
Sodium Pending
Potassium Pending
Chloride Pending
Carbon Dioxide Pending
BUN Pending
Creatinine Pending
Glucose Pending
Calcium Pending
Vital Signs:
Vital Signs
Temp Pulse Resp BP Pulse Ox
97.6 F 87 18 166/96 94
08/13/25 03:11 08/13/25 03:11 08/13/25 03:11 08/13/25 03:11 08/13/25 03:11
I&O
08/12/25 08/13/25 08/14/25
06:59 06:59 06:59
Intake Total 240 / 240 690 / 690
Balance 240 / 240 690 / 690
[2025-08-13 07:59] VITALS: BP 150/86
[2025-08-13] MEDS: RISPERDAL 0.5 MG PO (08:19)
[2025-08-13] MEDS: FEOSOL 325 MG PO (08:19)
[2025-08-13] MEDS: CYMBALTA DELAYED RELEASE 60 MG PO (08:19)
[2025-08-13] MEDS: NEUTRA-PHOS POWDER PACKET 250 MG PO ×2 (08:19→14:12)
[2025-08-13] MEDS: HEPARIN 5000 UNITS SC (08:21)
[2025-08-13] MEDS: TOPROL XL 25 MG PO (08:25)
[2025-08-13 08:55] LABS: Hematocrit 35.0 % (37.0-47.0); Hemoglobin 12.0 g/dL (12.0-16.0); Mean Corp Hgb Conc. 34.3 g/dL (33.0-37.0); Mean Corpuscular Volume 79.5 fL (81.0-99.0); Platelet Count 379 10^3/uL (130-400); Red Cell Dist. Width 14.9 % (11.5-14.5)
[2025-08-13 09:40] LABS: Blood Urea Nitrogen 6 mg/dl (7-17); Calcium 8.3 mg/dl (8.4-10.2); Carbon Dioxide 21 mmol/L (22-30); Chloride 111 mmol/L (98-107); Estimated Creatinine Clearance 54 ml/min; Glucose 97 mg/dl (70-99); HDL Cholesterol 51 mg/dl; LDL Cholesterol, Calculated 76 mg/dl; Magnesium 1.7 mg/dl (1.6-2.3); Potassium 3.7 mmol/L (3.5-5.1); Sodium 140 mmol/L (135-145); Very Low Density Lipoprotein 29 mg/dl (0-30); eGFR > 60.00
[2025-08-13] MEDS: DIOVAN 160 MG PO (09:44)
[2025-08-13] MEDS: QUESTRAN 4 GRAM PO (09:53)
--- NOTE | 2025-08-13 11:16 | CM ---
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 Patient will need ambulance transport to [place]
[facility]
Report [phone]
[2025-08-13 11:55] VITALS: BP 130/80
[2025-08-13 12:13] LABS: COVID-19 Antigen Negative (Negative)
--- NOTE | 2025-08-13 12:50 | W.DCSUMMARY ---
Discharge Summary
Discharge Data
Date of Admission: 08/03/25
Date of Discharge: 08/13/25
-
Pending Results: Yes
Additional Pending Results:
RPR
Discharge Plan
-
Patient Disposition: Skilled Nursing/SNF
Discharge Diagnosis/Procedures: Colitis, possibly Cdiff
New onset Afib RVR since spontaneously converted back to Normal Sinus Rhythm
Abnormal Thyroid Function Test, Possible subclinical hypothyroidism
TSH elevated 8.76 but T4 1.44 within normal limits
Acute Kidney Injury resolved
Mild Hypoxemia resolved
Aspiration pneumonia
Dysphagia
Senile Dementia
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
Hypertension
Paroxysmal Atrial Fibrillation
Aorta Aneurysm 5.0 cm
Condition: Fair
Diet: Other diet
Additional Diets: Pureed Diet with mild thickened liquids (Cumings)
Activity: With assistance, As tolerated and With Walker
Driving Restrictions: No driving
Bathing Restrictions: None
Blood Work: Repeat CBC and BMP with primary care provider in 1 week of discharge
Repeat Thyroid Function Test with primary care provider in 1 month of discharge.
Other Services: PT, OT and ST
Activity Restrictions/Additional Instructions:
Follow up with primary care provider in 1 week of discharge and keep your appointment with Cardiology.
Home Metoprolol increased to 25 mg twice a day for treatment/rate control paroxysmal atrial fibrillation.
Oral vancomycin four times a day prescribed to treat suspected CDiff colitis. Last day of treatment 08/17/25
Home Pepcid reduced to 20 mg daily due to kidney function (Creatine Clearance <60)
Imodium and Tums switched from scheduled to as needed.
Tramadol discontinued as medication has not been needed during stay.
Please take medications as prescribed/recommended and follow up with primary care provider and/or other healthcare provider involved in your care for refills and/or further adjustment to your medication regimen as necessary.
Referrals:
Maryann Hernandez MD [Family Provider, Internal Medicine] - in one week
Melodie Burdick CRNP [Specified Professional Personl, Cardiology] - 09/15/25 3:20 pm
Referral Note: You have a cardiology follow-up appointment at the [place] office. Please call with questions
Prescriptions:
New
vancomycin 125 mg capsule
125 mg PO QID Qty: 20 0RF
Rx Instructions:
08/17/25 last day for treatment suspected CDiff colitis
metoprolol succinate 25 mg Tablet Extended Release 24 Hr
25 mg PO BID Qty: 60 0RF
famotidine [Pepcid] 20 mg tablet
20 mg PO DAILY Qty: 30 0RF
Continued
risperidone 0.5 mg Tablet
0.5 mg PO DAILY
amlodipine [Norvasc] 5 mg Tablet
5 mg PO DAILY
simvastatin [Zocor] 20 mg Tablet
20 mg PO QPM
calcium polycarbophil [FiberCon] 625 mg Tablet
625 mg PO DAILY
valsartan 160 mg Tablet
160 mg PO QPM
duloxetine 60 mg Capsule,Delayed Release(Dr/Ec)
60 mg PO BID
cholecalciferol (vitamin D3) [Vitamin D3] 50 mcg (2,000 unit) Capsule
50 mcg PO DAILY
Prolia 60 mg/mL Syringe
60 mg SC [id number]
Changed
loperamide 2 mg Tablet
2 mg PO BIDPRN PRN (Reason: diarrhea) Qty: 0 0RF
calcium carbonate [Tums] 200 mg calcium (500 mg) Tablet,Chewable
400 mg PO DAILYPRN PRN (Reason: dyspepsia) Qty: 0 0RF
Discontinued
famotidine [Pepcid] 40 mg Tablet
40 mg PO BID
tramadol 50 mg Tablet
50 mg PO BIDPRN PRN (Reason: moderate pain)
metoprolol succinate [Toprol XL] 25 mg Tablet Extended Release 24 Hr
12.5 mg PO QPM
Discharge Orders:
Discharge Patient (As Directed); Ordered 08/13/25
Ordered By: Gerardo Wan
Discharge Date and Time
Print Language: SERBIAN
--- NOTE | 2025-08-13 14:26 | PTCARENOTE ---
attempt to call for report. no answer. mailbox full. will attempt again
--- NOTE | 2025-08-13 14:34 | PTCARENOTE ---
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
[2025-08-14 11:37] LABS: Syphilis/T. pallidum Ab Reflex Negative (Negative)
== END 2025-08-13 15:15 | DRG 871 ==
LOC: 4 WEST ACU 22:31
PROVIDERS: Internal Medicine; Nurse Practitioner Gerontology; Physician Assistant; ADMITTING PHYSICIAN Hospitalist; ATTENDING PHYSICIAN Internal Medicine; CONSULT PHYSICIAN Internal Medicine Gastroenterology; EMERGENCY PHYSICIAN Emergency Medicine; FAMILY PHYSICIAN Internal Medicine Geriatric Medicine; OTHER PHYSICIAN Internal Medicine Cardiovascular Disease
DX: A41.9 Sepsis, unspecified organism (principal); J69.0 Pneumonitis due to inhalation of food and vomit; N17.9 Acute kidney failure, unspecified; E87.1 Hypo-osmolality and hyponatremia; E87.20 Acidosis, unspecified; A04.72 Enterocolitis due to Clostridium difficile, not specified as recurrent; Z66 Do not resuscitate; I12.9 Hypertensive chronic kidney disease with stage 1 through stage 4 chronic kidney disease, or unspecified chronic kidney disease; K21.9 Gastro-esophageal reflux disease without esophagitis; N18.30 Chronic kidney disease, stage 3 unspecified; E87.5 Hyperkalemia; G31.83 Neurocognitive disorder with Lewy bodies; F02.80 Dementia in other diseases classified elsewhere, unspecified severity, without behavioral disturbance, psychotic disturbance, mood disturbance, and anxiety; H54.8 Legal blindness, as defined in USA; H35.30 Unspecified macular degeneration; H35.52 Pigmentary retinal dystrophy; E78.5 Hyperlipidemia, unspecified; I48.0 Paroxysmal atrial fibrillation; E03.8 Other specified hypothyroidism; I08.0 Rheumatic disorders of both mitral and aortic valves; E87.6 Hypokalemia; I71.9 Aortic aneurysm of unspecified site, without rupture; M81.0 Age-related osteoporosis without current pathological fracture; R09.02 Hypoxemia; Z86.718 Personal history of other venous thrombosis and embolism; Z96.653 Presence of artificial knee joint, bilateral; Z79.899 Other long term (current) drug therapy; Z11.52 Encounter for screening for COVID-19
CPT/HCPCS: 70450; 71046; 71275; 74177; 74230; 76700; 80048; 80053; 80061; 82306; 82607; 82728; 82746; 83540; 83550; 83690; 83735; 83880; 83993; 84100; 84439; 84443; 84484; 85025; 85027; 86780; 87045; 87046; 87070; 87324; 87427; 87449; 87811; 92507; 92526; 92610; 92611; 93005; 93306; 94640; 96360; 97162; 97167; 97530; 97535; 99284; Q9967